=== PATIENT | female | born 1950 | race Caucasian/White ===

== ENCOUNTER → 2017-09-16 11:44 | Outpatient (CLI) | payer OTHER, SELFPAY ==
--- NOTE | 2017-09-16 11:47 | HPBI_ITS ---
MAMMOGRAPHY - BILATERAL SCREENING REASON FOR EXAM: Female, 66 years old. Routine annual screening examination. PERTINENT HISTORY: Non-contributory. TECHNIQUE: Digital bilateral breast erinn (3D mammographic acquisition) in the CC and MLO projections. 2-D mediolateral oblique (MLO) and craniocaudad (CC) views of both breasts were obtained. CAD: Full Field Digital Mammography with Computer Added Detection was performed. COMPARISON: Comparison is made with prior study dated September 14, 2016. FINDINGS: Breast Composition: The breasts are heterogeneously dense, which may obscure small masses. There are no dominant masses or suspicious calcifications. No other significant abnormalities are identified. There has been no significant change since the prior study. HPBI/SCREENING MAMM (CAD), BILAT IMPRESSION: Stable bilateral screening mammogram. Yearly follow-up mammogram recommended. (A) ASSESSMENT CATEGORY: BIRADS Category 1: Negative. A letter regarding these results will be sent to the patient by the facility within 30 days. Approximately 10% of breast cancers are not detected by mammography. A normal mammogram should not delay biopsy of a clinically suspicious abnormality. [id number] Electronically Signed: Chet Lopez MD at 13:05 EDT Tel [phone], Service support ,
== END ==
PROVIDERS: Visit Provider Nurse Practitioner Family
DX: Z12.31 Encounter for screening mammogram for malignant neoplasm of breast (principal)
CPT/HCPCS: 77063; 77067

== ENCOUNTER → 2019-02-21 | Outpatient (CLI) | payer MEDICARE, SELFPAY ==
--- NOTE | 2019-02-21 07:50 | BI_ITS ---
MAMMOGRAPHY - BILATERAL SCREENING 3-D TOMOSYNTHESIS REASON FOR EXAM: Female, 68 years old. Bilateral Screening 3-D tomosynthesis PERTINENT HISTORY: No significant family history. TECHNIQUE: 2-D mammograms and 3-D Tomosynthesis of the breast (s) were performed. CAD was performed. COMPARISON: 09/16/2017, 09/14/2016. FINDINGS: The breast composition is composed of scattered fibroglandular density. Scattered benign calcifications are seen. No dense spiculated masses or suspicious microcalcifications are identified. No architectural distortion is identified. There is no skin thickening or retraction. There has been no significant change since the prior study. BI/SCREEN MAMM (CAD) W/RITCHIE BILAT IMPRESSION: No mammographic signs of malignancy. Routine yearly mammograms recommended. ASSESSMENT CATEGORY: BIRADS Category 2: Benign. A letter regarding these results will be sent to the patient by the facility within 30 days. FOLLOW UP RECOMMENDATION: Yearly follow up mammogram recommended. (A) Approximately 10% of breast cancers are not detected by mammography. A normal mammogram should not delay biopsy of a clinically suspicious abnormality. Electronically Signed: Tk Desouza MD at 16:17 EDT Tel [phone], Service support ,
== END | disposition home or self-care (01) ==
LOC: OPBI 07:44
DX: Z12.31 Encounter for screening mammogram for malignant neoplasm of breast (principal)
CPT/HCPCS: 77063; 77067

== ENCOUNTER → 2020-05-23 14:47 | Outpatient (CLI) | payer MEDICARE, SELFPAY ==
--- NOTE | 2020-05-23 14:50 | BI_ITS ---
MAMMOGRAPHY - BILATERAL SCREENING REASON FOR EXAM: Female, 69 years old. Routine annual screening examination. PERTINENT HISTORY: Non-contributory. TECHNIQUE: Digital bilateral breast ritchie (3D mammographic acquisition) in the CC and MLO projections. 2-D mediolateral oblique (MLO) and craniocaudad (CC) views of both breasts were obtained. CAD: Full Field Digital Mammography with Computer Added Detection was performed. COMPARISON: Comparison is made with prior study dated 02/21/2019 and 09/16/2017. FINDINGS: Breast Composition: There are scattered areas of fibroglandular density. There are no dominant masses or suspicious calcifications. Benign appearing bilateral axillary lymph nodes. No other significant abnormalities are identified. There has been no significant change since the prior study. BI/SCREEN MAMM (CAD) W/RITCHIE BILAT IMPRESSION: Stable bilateral screening mammogram. Yearly follow-up mammogram recommended. (A) ASSESSMENT CATEGORY: BIRADS Category 1: Negative. A letter regarding these results will be sent to the patient by the facility within 30 days. Approximately 10% of breast cancers are not detected by mammography. A normal mammogram should not delay biopsy of a clinically suspicious abnormality. [id number] Electronically Signed: Chet Lopez, at 15:38 EST , Service support ,
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
== END ==
DX: Z12.31 Encounter for screening mammogram for malignant neoplasm of breast (principal); Z13.820 Encounter for screening for osteoporosis; Z78.0 Asymptomatic menopausal state; M81.0 Age-related osteoporosis without current pathological fracture; Z87.891 Personal history of nicotine dependence
CPT/HCPCS: 77063; 77067; 77080

== ENCOUNTER 2020-06-12 06:50 | Day surgery (SDC) | payer MEDICARE, SELFPAY ==
[2020-06-12 07:09] VITALS: BP 129/91; PULSE 80; RESP 16; TEMP 36; O2SAT 95; BMI 28.6
[2020-06-12] MEDS: Lactated Ringers 1,000 ML 100 ML IV (07:27)
--- NOTE | 2020-06-12 07:49 | HP.PCM_ITS ---
History of Present Illness Date of Admission: 06/12/20 The patient is a 69 year old F presents for colonoscopy due to history of colon polyps. Patient's last colonoscopy was 5 years ago there was 2 polyps at that time. Patient states normally bowel movements daily denies any blood. Patient denies any family history of colon cancer. Patient denies any chronic abdominal pain nausea or vomiting. Past Medical/Surgical History - Planned Operation Planned Operative Procedure/s: cscope open access Date of Operative Procedure: 06/12/20 Permit Signed: No S.O.S: No Is This Patient Having a Total Joint: No - Previous Hospitalizations/Surgeries HX Hospitalizations: No HX of Surgeries: cscope. uterine ablation. bladder lift Any Problems With Anesthesia: No You/Your Family Experience Fever (Hyperthermia) With Anes: No Cholinesterase deficiency: No - Cardiovascular Hx Chest Pain within Last 2 months: No Hx of Irregular Heartbeat and/or Afib: No Hx Heart Attack: No Hx Congestive Heart Failure: No Hx Rheumatic Fever: No Hx Hypertension: Yes - controlled with med Hx Internal Defibrillator: No Hx Pacemaker: No Hx Cardiac Catheterization: No Hx Cardiac Surgery/Stents/Etc.: No Hx Stress Test: No HX Edema: No Hx Pain in Legs when Walking/Leg Cramps: No - Respiratory Chronic Cough: No HX of Shortness of Breath: No Hoarseness: No Hx Chronic Obstructive Pulmonary Disease (COPD): No Hx Asthma: No Hx Emphysema: No Hx Sleep Apnea: No Hx Oxygen Use at Home: No Hx Respiratory Tract Infection/Cold (presently): No Do You Snore Loudly (louder than talking or can be heard): No Do You Often Feel Tired/ Fatigued/ Sleepy Dring Daytime?: No Has Anyone Observed You Stop Breathing During Sleep?: No Result (for STOP score): Negative Hx Smoking: Yes - quit 2 yrs ago Smoking Status: Former smoker - Gastrointestinal Hx Gastroesophageal Reflux: No - occ heartburn Hx Gastrointestinal Disorders: No Hx Gastrointestinal Bleed: No Hx Ulcer: No Hx Hiatal Hernia: No Difficulty Chewing/Swallowing: No Recent Onset of Swallowing Problems: No Special diet followed at home: No Hx Unplanned Weight Loss of 20#: No HX Unplanned Weight Gain of 20#: No - Neurological Hx Seizures: No HX Syncope/Blackout Spells/Unconsciousness: No Hx CVA/Stroke: No Hx Transient Ischemic Attacks (TIA): No Hx Multiple Sclerosis: No Hx Parkinson's Disease: No Hx Head/Neck Injury: No Hx Headaches: No Hx Back Injury/Pain: Yes - lower back pain prn Recent Onset of Speech Difficulty: No Restless Legs: Yes - occ Does patient have nerve stimulator: No Patient instructed to have device shut off: No Rep notified?: No - Blood Disorder Hx Leukemia: No Bleeding Tendencies: No Hx Deep Vein Thrombosis: No Hx High Cholesterol: Yes - on med Blood Transmitted Disease: No Hx Hepatitis: No Hx Cirrhosis: No Hx Anemia: No Hx Blood Disorders: No - Reproduction : No Is Patient Lactating: No Hx Hysterectomy: No Hx Tubal Ligation: No Are You Post Menopause: Yes - Genitourinary Hx Renal Disease: No - incontinence - Musculoskeletal Hx Arthritis: Yes Hx Rheumatoid Arthritis: No Hx Gout: No Recent Onset of an Orthopedic Problem: No - Endocrine Hx Diabetes: No Thyroid Disease: No Hx Steroid Therapy: No - Psycho/Social Hx Substance Use: No Hx Alcohol Use: No Hx Anxiety: No Hx Depression: No Mental Illness: No Hx Dementia: No - Miscellaneous Hx Cancer: No Recent Exposure to Contagious Disease: No Active MRSA: No Hx of C-Diff: No Any Loose Teeth: No - dentures Allergies celecoxib [From Celebrex] Allergy (Intermediate, Verified 06/12/20 07:07) Rash - Discharge Is Pt Admitted From a Penitentiary, or a Longterm: No After D/C, Where Do you Plan to Go: Return Home - From the PAT History Number of Risk Factors: 1 - Physical Exam Vitals/I&O's: Vital Signs Temp Pulse Resp BP Pulse Ox 96.8 F L 80 16 129/91 H 95 06/12/20 07:09 06/12/20 07:09 06/12/20 07:09 06/12/20 07:09 06/12/20 07:09 Oxygen Delivery Method Room Air Weight: 154 lb 1.65 oz Body Mass Index (BMI) 28.6 General: Alert, Oriented x3, Cooperative, No apparent distress HEENT: Atraumatic Lungs: Normal air movement Cardiovascular: Regular rate Abdomen: Soft, Non Tender, Non-Distended Extremities: No clubbing, No cyanosis, No edema Neurological: Cranial nerves II-XII grossly intact Psych/Mental Status: Normal Affect Microbiology Past 72 Hours 06/11/20 10:00 Interface Orders SARS-CoV-2 Antigen (Rapid) - Final Current Medications Lactated Ringer's () 1,000 mls @ 100 mls/hr IV .Q10H MIKO Last Admin: 06/12/20 07:27 Dose: 100 mls/hr Documented by: Assessment/Plan All Active Problems (Last Updated 09/19/19 @ 10:21 by Ronel Hall) Chest pain (Acute) 69-year-old female history of colon polyps Procedure Criteria Procedure Type: Elective COVID Risk Discussion: The surgeon/proceduralist and patient have discussed in detail the risk of exposure to and/or potential harm posed by the COVID-19 virus with having a surgery/procedure at this time versus the risk of delaying the surgery/procedure. It is not possible to know either the risk of delaying the surgery or procedure or chance of getting an infection with perfect accuracy, but a joint decision was made between the patient and the surgeon/proceduralist to proceed at this time with the scheduled surgery/procedure as indicated on the consent form. Surgery Risks - Colonoscopy I discussed with the patient the risks of the procedure: Yes Risks Include but are not Limited To: Risks include but are not limited to: Bleeding, perforation requiring further surgery, inability to complete colonoscopy requiring barium enema.
--- NOTE | 2020-06-12 08:00 | COLBX_PTH ---
PATIENT: BERNICE WEST LOC: EN U#:[id number] AGE/SX: 69/F ROOM: RE06/12/[address]: Dr. Maura Mojica MD : 1950 BED: DIS: 06/12/2020 SPEC #: [id number] RECD: 06/12/20 08:00 STATUS: RAMO LULY #: [id number] YOLANDA: 06/12/20 08:[address]: Maura Mojica DEPT: SURGICAL PATHOLOGY RECD BY: Lillian Colby ENTERED: 06/12/20 10:57 SP TYPE: COLON BX OTHR DR: B[facility] Tissues: Rectum, NOS Procedures: Surgery Specimen Level IV HEADER OPERATION: Colonoscopy - open access (MAC) PRE-OP DIAGNOSIS: Colon polyps TISSUE SUBMITTED: Rectal polyps (biopsy and snare) MICROSCOPIC DIAGNOSIS Rectal polyps, biopsy: Tubular adenoma. Fragments of hyperplastic polyp. SJ:sammie 12/10/20 MICROSCOPIC DESCRIPTION Slides are reviewed. GROSS DESCRIPTION Received in fixative is one container labeled with the patient's name and designated rectal polyps. The specimen consists of multiple irregular fragments of light hedrick soft tissue that in aggregate measure 1 x 0.6 x 0.1 cm. The specimen is totally submitted in one cassette. / AM:sammie 06/12/20 TC:1 CPT: 68937
[2020-06-12 08:26] VITALS: BP 107/73; BP 129/91; PULSE 74; RESP 18; TEMP 36.1; O2SAT 99
[2020-06-12 08:31] VITALS: BP 110/71; BP 129/91; PULSE 75; RESP 17; O2SAT 97
[2020-06-12 08:36] VITALS: BP 109/66; BP 129/91; PULSE 73; RESP 18; O2SAT 97
--- NOTE | 2020-06-12 08:39 | OP.COLON_ITS ---
Patient Name: Lolita Martinez Procedure Date: 06/12/2020 7:12 AM Date of : 1950 Age: 69 Procedure: Colonoscopy Indications: High risk colon cancer surveillance: Personal history of colonic polyps Providers: Maura Mojica MD Referring MD: Maura Mojica MD Medicines: Monitored Anesthesia Care Patient Profile: This is a 69 year old female. Last Colonoscopy: 5 years ago. Complications: No immediate complications. Procedure: Pre-Anesthesia Assessment: - Prior to the procedure, a History and Physical was performed, and patient medications and allergies were reviewed. The patient's tolerance of previous anesthesia was also reviewed. The risks and benefits of the procedure and the sedation options and risks were discussed with the patient. All questions were answered, and informed consent was obtained. Prior Anticoagulants: The patient has taken no previous anticoagulant or antiplatelet agents. ASA Grade Assessment: Per anesthesia. After reviewing the risks and benefits, the patient was deemed in satisfactory condition to undergo the procedure. After I obtained informed consent, the scope was passed under direct vision. Throughout the procedure, the patient's blood pressure, pulse, and oxygen saturations were monitored continuously. The colonoscope was introduced through the anus and advanced to the cecum, identified by the appendiceal orifice, ileocecal valve and palpation. The colonoscopy was performed without difficulty. The patient tolerated the procedure well. The quality of the bowel preparation was good. Scope In: 7:58:43 AM Scope Withdrawal Time 0 hours 13 minutes 33 seconds Scope Out: 8:20:34 AM Total Procedure Duration Time 0 hours 21 minutes 51 seconds Findings: Hemorrhoids were found on perianal exam. Internal hemorrhoids were found during retroflexion. The hemorrhoids were small. A less than 5 mm polyp was found in the rectum. The polyp was removed with a cold snare. Resection and retrieval were complete. Biopsies were taken with a cold forceps for histology. A less than 5 mm polyp was found in the rectum. The polyp was sessile. The polyp was removed with a cold biopsy forceps. Resection and retrieval were complete. Impression: - Hemorrhoids found on perianal exam. - Internal hemorrhoids. - One less than 5 mm polyp in the rectum, removed with a cold snare. Resected and retrieved. Biopsied. - One less than 5 mm polyp in the rectum, removed with a cold biopsy forceps. Resected and retrieved. Recommendation: - Repeat colonoscopy is recommended for surveillance. The colonoscopy date will be determined after pathology results from today's exam become available for review. - Continue present medications. Procedure Code(s): --- Professional --- 91945, PT, Colonoscopy, flexible; with removal of tumor(s), polyp(s), or other lesion(s) by snare technique 37752, 59, Colonoscopy, flexible; with biopsy, single or multiple Diagnosis Code(s): --- Professional --- Z86.010, Personal history of colonic polyps K64.8, Other hemorrhoids K62.1, Rectal polyp CPT copyright 2017 [employer]. All rights reserved. The codes documented in this report are preliminary and upon patient registration clerk review may be revised to meet current compliance requirements. MD Maura Luis MD 06/12/2020 8:39:39 AM This report has been signed electronically. Number of Addenda: 0 Note Initiated On: 06/12/2020 7:12 AM
--- NOTE | 2020-06-12 08:40 | OP.CCLET_ITS ---
06/12/2020 [place] [facility] Re : Colonoscopy procedure for Lolita [facility] This procedure was performed on Friday, June 12, 2020. My impressions and recommendations are as follows: Impressions : - Hemorrhoids found on perianal exam. - Internal hemorrhoids. - One less than 5 mm polyp in the rectum, removed with a cold snare. Resected and retrieved. Biopsied. - One less than 5 mm polyp in the rectum, removed with a cold biopsy forceps. Resected and retrieved. Recommendations : - Repeat colonoscopy is recommended for surveillance. The colonoscopy date will be determined after pathology results from today's exam become available for review. - Continue present medications. My findings are described in the full procedure note, which is enclosed. If I can be of further assistance, please feel free to contact me at Doctor phone number(s): , Work: . Sincerely, MD Maura Luis MD 06/12/2020 8:39:39 AM This report has been signed electronically.
[2020-06-12 08:41] VITALS: BP 107/74; BP 129/91; PULSE 79; RESP 17; TEMP 36.3; O2SAT 98
[2020-06-12 09:31] VITALS: BP 129/91
== END 2020-06-12 09:36 | disposition home or self-care (01) ==
LOC: EN 06:51 → AC 06:51
PROVIDERS: Referring Provider Surgery; Visit Provider Surgery
PROC: 0DJD8ZZ Inspection of Lower Intestinal Tract, Via Natural or Artificial Opening Endoscopic (ICD-10-PCS; CPT 45378; principal; 2020-06-12 07:55)
DX: D12.8 Benign neoplasm of rectum (principal); K64.8 Other hemorrhoids; Z87.19 Personal history of other diseases of the digestive system; I10 Essential (primary) hypertension; E78.00 Pure hypercholesterolemia, unspecified; Z79.899 Other long term (current) drug therapy; Z20.828 Contact with and (suspected) exposure to other viral communicable diseases; Z87.891 Personal history of nicotine dependence
CPT/HCPCS: 45380; 87426; 88305; C9803; J7120; J2405

== ENCOUNTER → 2020-07-23 09:58 | Outpatient (CLI) | payer MEDICARE, SELFPAY ==
[2020-07-23 11:52] LABS: Vitamin D,25 Hydroxy 43.3 ng/mL
[2020-07-23 11:55] LABS: Cholesterol 196 mg/dL (200); High Density Lipoprotein 52 mg/dL; Triglycerides 252 mg/dL; Very Low Density Lipoprotein 50 mg/dL (5-40)
== END ==
DX: E55.9 Vitamin D deficiency, unspecified (principal); I10 Essential (primary) hypertension; E78.5 Hyperlipidemia, unspecified
CPT/HCPCS: 36415; 80061; 82306

== ENCOUNTER → 2020-08-07 10:13 | Outpatient (CLI) | payer MEDICARE, SELFPAY ==
[2020-08-07 12:04] LABS: T4 Free Direct 1.02 ng/dL (0.76-1.46); Thyroid Stim Hormone (TSH) 1.84 uIU/mL (0.358-3.74)
[2020-08-08 14:10] LABS: Thyroid Peroxidase AB < 9 IU/mL (0-34)
[2020-08-08 20:51] LABS: H. Pylori Antibody (IgG) 0.28 (0.00-0.79); Thyroglobulin Antibody < 1.0 IU/mL (0.0-0.9)
== END ==
PROVIDERS: Referring Provider Nurse Practitioner Adult Health; Visit Provider Nurse Practitioner Adult Health
DX: R63.5 Abnormal weight gain (principal)
CPT/HCPCS: 36415; 84439; 84443; 86376; 86677; 86800

== ENCOUNTER → 2020-10-09 07:55 | Outpatient (CLI) | payer MEDICARE, SELFPAY ==
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
== END ==
DX: R12 Heartburn (principal)
CPT/HCPCS: 76700

== ENCOUNTER → 2020-10-22 10:13 | Outpatient (CLI) | payer MEDICARE, SELFPAY ==
--- NOTE | 2020-10-22 10:20 | NM_ITS ---
CLINICAL: 69-year-old female with reported history of postprandial abdominal pain. RADIONUCLIDE HEPATOBILIARY SCINTIGRAPHY COMPARISON: Abdominal ultrasound report 10/09/2020 FINDINGS: Following the intravenous administration of 5.2 mCi of 99m Tc Mebrofenin, hepatobiliary images reveal: 1. Relatively prompt and homogeneous radiopharmaceutical concentration is noted by a normal sized liver. No parenchymal defects are identified. 2. Gallbladder activity is identified at 15 minutes post radiopharmaceutical administration. 3. Small intestinal tract is observed at 30 minutes following tracer injection. 4. Washout of the radiopharmaceutical by the hepatic parenchyma appears qualitatively normal. The patient was administered a fatty meal (8 ounces Half and Half). The post fatty meal consumption gallbladder ejection fraction calculated at 60 minutes was noted to be < 5% (normal greater than 30%). NM/Hepatobilliary Imaging IMPRESSION: 1. ABNORMAL 99m Tc Mebrofenin hepatobiliary imaging examination with fatty meal ingestion. A. A gallbladder ejection fraction calculated to be < 30% following the administration of a consumed fatty meal is consistent with the presence of functional hepatobiliary disease (gallbladder and/or sphincter of Oddi dyskinesia) and/or organic hepatobiliary disease (chronic acalculous cholecystitis and/or cystic duct syndrome) in patients with intermediate to high pretest probabilities of hepatobiliary illness. (Nazario and Adonay, J Nucl Med 43: 1603, 2002). Electronically Signed: Fahad Boyer DO at 22:32 EDT Tel , Service support ,
== END ==
DX: K82.9 Disease of gallbladder, unspecified (principal)
CPT/HCPCS: 78226; A9537

== ENCOUNTER → 2021-02-13 10:31 | Outpatient (CLI) | payer MEDICARE, SELFPAY ==
[2020-11-29 13:21] VITALS: BMI 28.6
[2021-02-14 16:09] LABS: Endomysial Antibody IgA Negative (Negative)
[2021-02-14 17:27] LABS: Deamidated Gliadin IgA 4 units (0-19); Deamidated Gliadin IgG 2 units (0-19); Immunoglobulin A 101 mg/dL (87-352); t-Transglutaminase IgA <2 U/mL (0-3)
== END ==
PROVIDERS: Visit Provider Nurse Practitioner Adult Health
DX: R19.7 Diarrhea, unspecified (principal)
CPT/HCPCS: 36415; 82784; 83516; 86255

== ENCOUNTER 2021-07-30 10:34 | Outpatient (CLI) | payer MEDICARE, SELFPAY ==
[2021-07-30 10:54] LABS: Absolute Neutrophil Count 3.6 X10^3/uL (2.0-7.7); Basophil# 0.05 X10^3/uL; Basophil% 0.8 % (0-1); Eosinophils% 1.7 % (0-5); Hemoglobin 14.5 g/dL (12.0-15.0); Lymphocyte % 28.9 % (19-41); Mean Corpuscular Hgb 28.4 pg (27.0-32.0); Mean Corpuscular Volume 86.1 fL (81-99); Mean Platelet Vol. 10.5 fl (6.2-12.0); Monocyte# 0.44 X10^3/uL; Monocyte% 7.5 % (0-10); NRBC Flagged by Analyzer 0 % (0-5); Neutrophil # 3.57 X10^3/uL (2.7-7.7); Neutrophil % 60.6 % (47-70); Platelet Count 247 K/mm3 (150-450); RBC Distribution Width CV 13.2 % (11.6-14.6); RBC Distribution Width SD 41.1 fl (35.1-43.9); Red Blood Count 5.11 M/mm3 (4.2-5.4); White Blood Count 5.9 K/mm3 (4.4-11.0)
[2021-07-30 11:34] LABS: ALB/GLOB Ratio 0.9 RATIO (0.9-2.4); AST(SGOT) 20 U/L (15-37); Alanine Aminotransfer ALT/SGPT 29 U/L (13-56); Albumin, Serum 3.7 g/dL (3.2-5.0); Alkaline Phosphatase 87 U/L (45-117); Anion Gap 4 (5-15); BUN 15 mg/dL (7-18); BUN/Creat Ratio 17.5 RATIO (10-20); Calcium,Total 9.5 mg/dL (8.5-10.1); Chloride 109 mmol/L (98-107); Cholesterol 202 mg/dL (200); Creatinine, Serum 0.86 mg/dL (0.55-1.02); EST Glomerular Filtration Rate 70 mL/min (>60); Est Glom Filt Rate - Afr Amer 85 mL/min (>60); Glucose 94 mg/dL (74-106); High Density Lipoprotein 49 mg/dL; Potassium 4.4 mmol/L (3.5-5.1); Protein, Total 7.7 g/dL (6.4-8.2); Sodium Level 139 mmol/L (136-145); Thyroid Stim Hormone (TSH) 1.61 uIU/mL (0.358-3.74); Triglycerides 223 mg/dL; Very Low Density Lipoprotein 45 mg/dL (5-40)
[2021-07-30 11:40] LABS: Hemoglobin A1c 5.4 % (3.8-5.6)
== END 2021-07-30 23:59 | disposition short-term general hospital (02) ==
LOC: LAB 10:36
PROVIDERS: Visit Provider Nurse Practitioner Adult Health
DX: I10 Essential (primary) hypertension (principal); Z83.3 Family history of diabetes mellitus
CPT/HCPCS: 36415; 80053; 80061; 83036; 84443; 85025

== ENCOUNTER 2021-08-19 12:29 | Outpatient (CLI) | payer MEDICARE, SELFPAY ==
--- NOTE | 2021-08-19 12:31 | BI_ITS ---
MAMMOGRAPHY - BILATERAL SCREENING REASON FOR EXAM: Female, 70 years old. Routine annual screening examination. PERTINENT HISTORY: Non-contributory. TECHNIQUE: Digital bilateral breast ritchie (3D mammographic acquisition) in the CC and MLO projections. 2-D mediolateral oblique (MLO) and craniocaudad (CC) views of both breasts were obtained. CAD: Full Field Digital Mammography with Computer Added Detection was performed. COMPARISON: Comparison is made with prior study dated 05/23/2020 and 02/21/2019. FINDINGS: Breast Composition: There are scattered areas of fibroglandular density. There are no dominant masses or suspicious calcifications. Stable small benign-appearing right axillary lymph nodes. No other significant abnormalities are identified. There has been no significant change since the prior study. BI/SCRN MAMM (CAD)W/RITCHIE BILAT IMPRESSION: Stable bilateral screening mammogram. Yearly follow-up mammogram recommended. (A) ASSESSMENT CATEGORY: BIRADS Category 2: Benign. A letter regarding these results will be sent to the patient by the facility within 30 days. Approximately 10% of breast cancers are not detected by mammography. A normal mammogram should not delay biopsy of a clinically suspicious abnormality. [id number] Electronically Signed: Chet Lopez MD at 13:33 EST ,
== END 2021-08-19 23:59 | disposition home or self-care (01) ==
LOC: OPBI 12:29
PROVIDERS: Referring Provider Nurse Practitioner Adult Health; Visit Provider Nurse Practitioner Adult Health
DX: Z12.31 Encounter for screening mammogram for malignant neoplasm of breast (principal)
CPT/HCPCS: 77063; 77067

== ENCOUNTER → 2021-10-29 | Outpatient (CLI) | payer MEDICARE, SELFPAY | END | disposition home or self-care (01) | LOC: LABSPEC 13:48 | PROVIDERS: Visit Provider Nurse Practitioner Women's Health | DX: R10.31 Right lower quadrant pain (principal); R10.32 Left lower quadrant pain | CPT/HCPCS: 87086; 87088 ==

== ENCOUNTER → 2021-11-03 | Outpatient (CLI) | payer MEDICARE, SELFPAY ==
[2021-11-03 12:04] LABS: AST(SGOT) 22 U/L (15-37); Alanine Aminotransfer ALT/SGPT 32 U/L (13-56); Cholesterol 200 mg/dL (200); High Density Lipoprotein 51 mg/dL; Triglycerides 205 mg/dL; Very Low Density Lipoprotein 41 mg/dL (5-40)
== END | disposition home or self-care (01) ==
LOC: LAB 10:19
PROVIDERS: Visit Provider Nurse Practitioner Adult Health
DX: E78.5 Hyperlipidemia, unspecified (principal)
CPT/HCPCS: 36415; 80061; 84450; 84460

== ENCOUNTER 2022-01-22 11:50 | Outpatient (CLI) | payer MEDICARE, SELFPAY ==
[2022-01-22 12:59] LABS: NATERA MAILED SPECIMEN
== END 2022-01-22 23:59 | disposition home or self-care (01) ==
LOC: LAB 11:52
PROVIDERS: Referring Provider Obstetrics & Gynecology; Visit Provider Obstetrics & Gynecology
DX: Z15.01 Genetic susceptibility to malignant neoplasm of breast (principal); Z80.3 Family history of malignant neoplasm of breast
CPT/HCPCS: 36415

== ENCOUNTER → 2022-02-10 | Outpatient (CLI) | payer MEDICARE, SELFPAY ==
--- NOTE | 2022-02-10 13:08 | US_ITS ---
STUDY: ULTRASOUND OF THE FEMALE PELVIS - COMPLETE REASON FOR EXAM: Female, 71 years old. Cystocele with UT PROLAPSE -- PATIENT HAS A PESSARY LMP: Patient is postmenopausal. TECHNIQUE: Transabdominal TECHNICAL QUALITY: Adequate. COMPARISON: None. FINDINGS: The uterus is anteverted and is in a midline position. The uterus measures 5.2 cm x 3.5 cm x 1.7 cm. Normal uterine cervix. The endometrium measures 2 mm in thickness, and is hyperechoic. There is no demonstrated endometrial mass. There is no demonstrated myometrial mass. I.U.D. - The patient does not have an I.U.D. The right ovary is visualized. The right ovary measures 2.1 cm x 2.2 cm x 0.8 cm. There is no right ovarian cyst or ovarian mass. There is no visualized right adnexal mass or complex lesion. There is normal arterial and normal venous vascularity. The left ovary is non-visualized. There is no fluid in the cul-de-sac. The pre void volume of the bladder was 580 ml. US/Pelvic (Non ) IMPRESSION: Normal postmenopausal female pelvis. Electronically Signed: Chet Lopez MD at 15:12 EDT ,
== END | disposition home or self-care (01) ==
LOC: OPUS 12:46
PROVIDERS: Visit Provider Obstetrics & Gynecology
DX: N81.3 Complete uterovaginal prolapse (principal); Z78.0 Asymptomatic menopausal state
CPT/HCPCS: 76856

== ENCOUNTER 2022-08-07 11:25 | Observation (INO) | payer MEDICARE, SELFPAY ==
--- NOTE | 2022-08-06 10:20 | EKG12_ITS ---
Test Reason : PRE OP Blood Pressure : / mmHG Vent. Rate : 068 BPM Atrial Rate : 068 BPM P-R Int : 102 ms QRS Dur : 086 ms QT Int : 382 ms P-R-T Axes : 042 029 012 degrees QTc Int : 406 ms Sinus rhythm with short [place] Nonspecific ST abnormality Abnormal ECG Confirmed by CHERRI SINCLAIR, MENA ([id number]), managing editor JONN MOTLEY ([id number]) on 08/06/2022 10:24:15 AM Referred By: Mercedes Nguyễn Confirmed By:MENA HARLEY MD
[2022-08-06 11:03] LABS: Absolute Lymphocyte Count 1.73 X10^3/uL (0.83-4.51); Absolute Neutrophil Count 4.6 X10^3/uL (2.0-7.7); Basophil# 0.05 X10^3/uL; Basophil% 0.7 % (0-1); Eosinophil# 0.09 X10^3/uL; Eosinophils% 1.3 % (0-5); Hematocrit 43.5 % (37-47); Hemoglobin 13.9 g/dL (12.0-15.0); Lymphocyte # 1.73 X10^3/ul (0.83-4.51); Mean Corpuscular Hgb 27.7 pg (27.0-32.0); Mean Corpuscular Volume 86.7 fL (81-99); Mean Platelet Vol. 10.8 fl (6.2-12.0); Monocyte# 0.48 X10^3/uL; Monocyte% 6.9 % (0-10); NRBC Flagged by Analyzer 0 % (0-5); Neutrophil # 4.55 X10^3/uL (2.7-7.7); Platelet Count 272 K/mm3 (150-450); RBC Distribution Width CV 13.3 % (11.6-14.6); RBC Distribution Width SD 41.7 fl (35.1-43.9); Red Blood Count 5.02 M/mm3 (4.2-5.4); White Blood Count 6.9 K/mm3 (4.4-11.0)
[2022-08-06 11:28] LABS: Anion Gap 7 (5-15); BUN 13 mg/dL (7-18); BUN/Creat Ratio 13.1 RATIO (10-20); Calcium,Total 9.4 mg/dL (8.5-10.1); Chloride 111 mmol/L (98-107); EST Glomerular Filtration Rate 59 mL/min (>60); Est Glom Filt Rate - Afr Amer 71 mL/min (>60); Estimated Creatinine Clearance 40.07 ml/min; Glucose 95 mg/dL (74-106); Sodium Level 144 mmol/L (136-145)
[2022-08-06 11:29] LABS: Magnesium 2.3 mg/dL (1.6-2.6)
--- NOTE | 2022-08-06 19:39 | PCM.HP.BLA ---
History and Physical Intake Visit Reasons:?vicky DAVILA Chief Complaint: pre op ERAS with vicky [facility] [employer] [facility] Required: No Is patient in pain?: No Allergies celecoxib [From Celebrex] Allergy (Intermediate, Verified 06/03/22 11:07) Rash Medications cholecalciferol (vitamin D3) 125 mcg (5,000 unit) tablet 125 mcg PO DAILY 09/19/19 [History Confirmed 07/27/22] lisinopril 10 mg tablet 10 mg PO QHS 09/19/19 [History Confirmed 07/27/22] oxybutynin chloride 10 mg tablet,extended release 24 hr 10 mg PO DAILY 09/19/19 [History Confirmed 07/27/22] simvastatin 10 mg tablet 20 mg PO QHS 10/22/21 [History Confirmed 07/27/22] dicyclomine 10 mg capsule 10 mg PO BID 01/22/22 [History Confirmed 07/27/22] pantoprazole 40 mg tablet,delayed release (Protonix) 40 mg PO DAILY 01/22/22 [History Confirmed 07/27/22] Is last menstrual period known: No Post menopausal: Yes Patient : No : No [facility] Medical History? Essential hypertension GERD (gastroesophageal reflux disease) Hyperlipidemia Osteoarthritis Vitamin D deficiency Surgical History? History of bladder suspension procedure History of colonoscopy (~05/2020) History of endometrial ablation History of tonsillectomy Family History? Father Heart diseaseSister Cancer ?? ? liverSister Cancer ?? ? ovarianGrandmother Diabetes Social History? household members:? none and other current occupational status:? retired Smoking Status:? Former smoker alcohol intake:? never substance use type:? does not use caffeine:? Yes Type: coffee Number of servings: 5 what type of physical activity do you participate in:? walking frequency:? 1-2 times per week seatbelt use:? always do you feel safe at home:? Yes additional social history:? HPI vicky DAVILA Details: BERNICE WEST is a 71 year old who presents for preop visit cystocele and uterine prolapse.? Female Reproductive History Menopausal Symptoms: No night sweats History ? ? ? 3 ? Elective abortions ? Hx Para ? ? ? 3 ? Spontaneous abortions ? Hx # Term Pregnancies ? Ectopic pregnancies ? Hx # Pregnancies ? Multiple births ? # of living children ? ? ? 3 Past Pregnancies Del. Date Name GA/Weeks Outcome Route Bth Weight Infant Gen Labor Lgth Anesthesia Del Locatn Provider FOB Unknown Walter ? 1970 ? Unknown Lita ? 1973 ? Unknown Brittany ? 1979 ? ROS Const Constitutional: Reports system reviewed and no additional complaints, except as documented; Denies night sweats Eyes Eyes: Reports system reviewed and no additional complaints, except as documented ENT ENT: Reports system reviewed and no additional complaints, except as documented Cardio Card: Denies chest pain Resp Resp: Denies cough or dyspnea GI GI: Denies abdominal pain or change in bowel habits : Reports as per HPI; Denies nipple discharge Musc Musc: Denies arthralgias, back pain or muscle weakness Skin Skin/Breast: Denies alopecia, change in hair, dry skin, breast mass, breast pain, breast skin changes or nipple discharge Neuro Neuro: Reports system reviewed and no additional complaints, except as documented Psych Psych: Reports system reviewed and no additional complaints, except as documented Endo Endo: Denies cold intolerance, excessive sweating, heat intolerance or polydipsia Zack/Lymph Hematologic/Lymphatic: Denies easy bleeding, Denies easy bruising and Denies lymphadenopathy Exam Const General: cooperative and no acute distress Nutritional Appearance: well nourished Orientation: oriented x3 HENMT Head: normal to inspection and normocephalic Ears: hearing grossly normal bilaterally and external ears normal Nose: external nose normal and nares normal Face and sinus: normal facial exam Neck Neck: normal visual inspection and no lymphadenopathy Thyroid: thyroid normal Chest Chest palpation & inspection: normal inspection of the chest Resp Effort & Inspection: normal respiratory effort Auscultation: clear to auscultation bilaterally Cardio Rate: regular rate Rhythm: regular rhythm Heart Sounds: S1 normal and S2 normal GI Inspection: normal to inspection and non-distended Palpation: soft and no hepatosplenomegaly General: bladder normal to palpation External Female Exam: normal appearance of the urethra and other (atrophic changes) Urethra: normal appearance of the urethra Speculum Exam - Vagina: vagina atrophic (cervix is prolapses just through introitus. States feels dry and irritated) Speculum Exam - Cervix: normal appearance of the cervix Bimanual Exam- Vagina & Uterus: uterine size normal, bladder normal to palpation and non-tender Bimanual Exam- Adnexa, other: normal adnexae, no masses, non-tender, cystocele and vaginal apex descent Pelvic Support: cystocele and vaginal apex descent Musc Other: gross motor intact no deficits, full bilateral strength Skin General: no rashes or lesions noted Neuro General: patient alert, patient awake, moves all extremities and no focal motor deficits Motor: muscle tone normal throughout Extrem General: normal to inspection and no pedal edema Psych Appearance: grossly normal Mental Status: mental status grossly normal Affect: normal affect Speech and Movement: speech and movement normal Coding Level of Care Code No Charge Diagnoses Cystocele with third degree uterine prolapse? N81.3 Family history of ovarian cancer? Z80.41 Atrophic vaginitis? N95.2 Assessment and Plan Assessment and Plan (1) Cystocele with third degree uterine prolapse: ?Status:?Acute ?Comment: #3 ring with support estradiol cream. Wants combination case July 2022 Morales Nguyễn/Vicky (2) Family history of ovarian cancer: ?Status:?Acute ?Comment: empower test negative, pelvic US nl (3) Atrophic vaginitis: ?Status:?Acute ?Comment: estradiol cream Plan After discussing the patient's diagnosis and treatment plan options, patient wishes to proceed with surgical management.? I have discussed with the patient the risks, benefits, and alternatives of the procedure which include but are not limited to risks of anesthesia, bleeding, infection, possible damage to bowel, bladder, or surrounding vasculature which could lead to additional surgery to evaluate any complications.? Patient agrees to procedure and wishes to proceed.? ACOG/uptodate references given for additional information regarding procedure.? UPDATE- I have seen the patient and performed any clinically relevant updates to the history and physical exam. Mercedes Nguyễn MD
[2022-08-07] VITALS (16 sets, daily range): BP systolic 96–159; BP diastolic 62–85; PULSE 62–88; RESP 16–83; TEMP 36.4–36.9; O2SAT 92–100; BMI 29.1; BMI 29.2
[2022-08-07] MEDS: dexAMETHasone 10 MG/ML Vial 8 MG IV (06:09)
[2022-08-07] MEDS: Lactated Ringers 1,000 ML 40 ML IV ×3 (06:10→13:08)
[2022-08-07] MEDS: Magnesium 1 GM over 15 mins IV (06:10)
[2022-08-07] MEDS: Acetaminophen 500 MG Tablet 1000 MG PO (06:29)
[2022-08-07] MEDS: Gabapentin 600 MG Tablet PO (06:29)
[2022-08-07] MEDS: Phenazopyridine 95 MG Tablet 190 MG PO (06:30)
[2022-08-07] MEDS: Enoxaparin 40 MG/0.4 ML Syringe SC (06:32)
[2022-08-07] MEDS: Scopolamine 1mg/72hr Patch 1 PATCH TD (06:32)
[2022-08-07 07:25] LABS: Bedside Glucose 100 mg/dL (74-106)
[2022-08-07] MEDS: Cefazolin 2 GM in 0.9% Normal Saline 100 ML IV (07:29)
--- NOTE | 2022-08-07 07:30 | HYST_PTH ---
PATIENT: BERNICE WEST LOC: MS3 U#:[id number] AGE/SX: 71/F ROOM: MS316 RE08/07/[address]: Dr. Mercedes Nguyễn MD : 1950 BED: 1 DIS: 08/08/2022 SPEC #: [id number] RECD: 08/07/22 16:43 STATUS: RAMO MAURICIO #: [id number] YOLANDA: 08/07/22 07:[address]: Mercedes Nguyễn DEPT: SURGICAL PATHOLOGY RECD BY: Lillian Colby ENTERED: 08/10/22 11:59 SP TYPE: HYSTERECT OTHR DR: MD Dr. Margarette Dash MD Jessica Franklin [facility] Central Tissues: Uterus, NOS Procedures: Surgery Specimen Level V HEADER OPERATION: ERAS, total vaginal hysterectomy, right salpingo-oophorectomy PRE-OP DIAGNOSIS: Cystocele with third degree uterine prolapse TISSUE SUBMITTED: Uterus, cervix, right ovary, bilateral fallopian tubes MICROSCOPIC DIAGNOSIS Uterus, hysterectomy: Cervix ? squamous metaplasia, nabothian cysts and mild chronic inflammation. Endometrium ? rare cystic atrophic endometrium. Myometrium ? focal adenomyosis and microcalcifications of vessel marquez. Ovary ? corpora albicantia. Fallopian tube - No pathologic change. AM:sammie 08/11/2022 MICROSCOPIC DESCRIPTION Slides are reviewed. GROSS DESCRIPTION Received in fixative is one container labeled with the patient's name and designated uterus. The specimen consists of a uterus with attached cervix measuring 6 x 3 x 2.5 cm and weighing 19 gm. The endocervical canal measures 3.3 cm in length and is grossly unremarkable. The triangular endometrial cavity measures 1.5 x 1.5 cm. The velvety, light hedrick endometrium measures <0.1 cm in thickness. The myometrium measures 1.3 cm in average thickness and is free of mass lesions. Also present free in the container is a crinkled white-hedrick ovary measuring 2.3 x 1.5 x 1 cm. Serial sections of the ovary do not reveal mass lesions. Present free in the container are two fragments of fallopian tubes ranging in size from 1.2 to 3 cm. Patient Registration Clerk sections are submitted as follows: 1 - anterior cervix, 2 - posterior cervix, 3 & 4 - anterior uterine wall, 5 & 6 - posterior uterine wall, 7 - ovary, 8 - fallopian tube. / AM:sammie 08/10/2022 TC:5 CPT: 71617
[2022-08-07] MEDS: Vasopressin 20 UNITS/ML Vial (08:05)
--- NOTE | 2022-08-07 11:15 | PCM.OPRPT ---
Report of Operation Date of Procedure: 08/07/22 Pre-Operative Diagnosis: Incomplete uterovaginal prolapse, stress urinary incontinence Post-Operative Diagnosis: Same Surgery/Procedure Performed:: Posterior repair, right sacrospinous ligament fixation, mid urethral sling, cystoscopy with bilateral ureteral catheterization Surgeon: Margarette Perry Type of Anesthesia: General Estimated Blood Loss (mL): 25 cc Description of Procedure: The patient is a 71-year-old female with pelvic organ prolapse and incontinence who now presents for definitive surgical intervention. Testing was done as an outpatient and informed consent has been obtained. The patient was taken to the operating room and placed on the operating room table. Anesthesia monitored the head, neck, airway, IV access and vital signs throughout the case. Once anesthesia was appropriately administered, the patient was placed into exaggerated dorsal lithotomy in Trendelenburg position. She was appropriately padded and secured to the table. She was then prepped and draped in usual sterile fashion. A Beebe catheter was inserted to straight drain and Dr. Nguyễn completed her portion of the procedure. The case was turned over to ct. The cystocele defect was no longer present. There is a mild apical defect and posterior defect present. The posterior submucosa was injected with vasopressin for hydrostatic dissection and hemostatic control. A midline incision was made and sharp and blunt dissection was performed on both sides until the rectovaginal fascia was identified. On the right side the dissection was extended apically all the way to the ischial spine where the sacrospinous ligament was identified and freed from surrounding tissues. Using Capio device, a sacrospinous ligament was passed through the ligament and brought through the vaginal mucosa in full-thickness fashion. The rectovaginal fascia was then brought together in a 2 layer closure in interrupted fashion using 3-0 PDS. The vaginal mucosa was closed using running interlocking 2-0 Vicryl. The posterior repair was difficult secondary to a very narrow shape of her pelvis. The mid urethra was then isolated and injected submucosally with vasopressin. A midline incision was made and sharp and blunt dissection was performed on either side of the urethra care being taken to avoid entrance into the urethra or the vaginal mucosa. The mid urethral sling was inserted using the trocars. The sling lay flat against the urethra without tension. The tensioning suture was then cut and the midline incision was closed using running interlocking 2-0 Vicryl. The Beebe catheter was removed the patient was taken out of Trendelenburg position. The cystoscope was inserted through the urethra under direct visualization into the urinary bladder. There were no areas of injury to the bladder or the urethra. There was no foreign body or blood within the urinary bladder lumen. Each ureteral orifice was identified in the correct anatomic position and each 1 was cannulated with a 5 Macedonian whistle-tip catheter which easily advanced to 20 cm bilaterally without evidence of obstruction or injury. At this time the cystoscope was removed revealing no issue with the urinary bladder. The coaptation at the area of the sling was visible. The Beebe catheter was then inserted and the balloon was inflated. The vaginal canal was packed with Premarin cream and vaginal packing. The patient was awakened and taken to the recovery room in good condition. There was no complication during the procedure. Grafts/Implants Used: Altis mid urethral sling Complications None Admit VTE Documentation VTE Present on Admission: Yes VTE Mechan Device Prophylaxis: SCD's VTE Pharm Prophylaxis ordered?: Yes
--- NOTE | 2022-08-07 11:21 | EX.PCM.DISCH ---
Discharge Instructions Diet Discharge Diet: No restrictions Activity Discharge Activity: May Not Drive (For 2 weeks) and May Shower May resume sexual activity in: 8 weeks Additional Activity Instructions:: No exercising, no strenuous activity, no lifting over 5 pounds, no vacuuming, no tub bathing, no hot tubs Dressing / Incision Call your doctor if your incision/area has: Continuous Slow Oozing, Sudden Increased Bleeding, Increased Pain/ Swelling and Foul Smelling Discharge Call your doctor if you observe: Fever of 101 or Higher, Inability to urinate and Inability to have a bowel movement Follow Up Care Please Follow Up With: Margarette Perry MD When: Call the office for appointment Test Results: Test results from this visit will be discussed in further detail at your follow-up appointment, if applicable. Discharge Plan Admission Attending Provider: Mercedes Nguyễn Primary Care Provider: [facility] Consult[employer] Providers: Margarette Perry ; Octaviano Vila ; Twila Ribera [employer] Discharge Orders/Prescriptions Prescriptions: New oxycodone-acetaminophen [Percocet] 5-325 mg tablet 1 tab PO Q8H PRN (Reason: pain) 5 Days Qty: 14 0RF cephalexin [cephalexin] 500 mg capsule 500 mg PO Q12 3 Days Qty: 6 0RF Continued cholecalciferol (vitamin D3) 125 mcg (5,000 unit) tablet 125 mcg PO DAILY oxybutynin chloride 10 mg tablet extended release 24hr 10 mg PO DAILY lisinopril 10 mg tablet 10 mg PO QHS simvastatin 10 mg tablet 20 mg PO QHS pantoprazole [Protonix] 40 mg tablet,delayed release (DR/EC) 40 mg PO DAILY dicyclomine 10 mg capsule 10 mg PO DAILY [facility] - Disposition Disposition (needs filled in before D/C Order can be placed): Home, Self Care
[2022-08-07] MEDS: Ondansetron 4 MG/2 ML Vial IV (13:15)
--- NOTE | 2022-08-07 14:28 | OP.PCM_ITS ---
Problems Associated Problem List Diagnoses (1) Cystocele with third degree uterine prolapse: Report of Operation Date of Procedure: 08/07/22 Pre-Operative Diagnosis: see PL Post-Operative Diagnosis: same Surgery/Procedure Performed:: TVH RSO left salpingectomy Description of Surgical Findings:: nl uterus tubes ovaries Surgeon: Mercedes Nguyễn folded towel machine operator: Bo Coles Type of Anesthesia: General Specimen's removed: uterus, tubes, ovaries Drains: malone Fluids Replaced: crystalloid Description of Procedure: Patient was taken to the operating room and was placed under general anesthesia was prepped and draped in normal sterile fashion in the dorsal lithotomy position. Preoperative antibiotics and SCDs and Malone catheter was placed inside the bladder. Weighted speculum was placed in the vagina and the anterior and posterior lip of the cervix was grasped with 2 Alcides clamps and circumferentially injected with dilute vasopressin. A circumferential incision was made with a scalpel and the posterior cul-de-sac was entered into sharply and a longneck speculum was placed. The anterior cul-de-sac was also dissected down and entered into sharply and the uterosacral ligaments were clamped cut and suture ligated bilaterally followed by the cardinal ligaments which were Clamped cut and suture ligated bilaterally with 0 Monocryl. The uterus serially descended and progressive bites were taken bilaterally up to the level of the utero-ovarian ligament bilaterally which was clamped transected and double ligated with 0 Monocryl suture and 0 Vicryl free tie. Bilateral fallopian tubes and ovaries were well visualized and noted be within normal limits and the IP ligament was transected across the base with a addie clamp, then the right ovary and tube was removed and the pedicle double ligated with O monocryl. Excellent hemostasis was noted. The left ovary was unable to be reached safely but the left tube was able to be reached and it was removed and ligated with 0 Monocryl. The vagina was closed with [id number] 0 Vicryl pop offs including the posterior and anterior peritoneum in the reapproximation however some bleeding was noted that was unable to be seen where the origin was and therefore the vaginal cuff closure was taken down and a small area of bleeding noted at the left uterosacral area which was oversewn with 0 Vicryl. Again the cuff closure was done after closing the anterior and posterior peritoneum with 2-0 Vicryl and after this cuff closure there was excellent hemostasis noted. Then Dr. Perry began her portion of the procedure. Grafts/Implants Used: none Complications none Admit VTE Documentation VTE Present on Admission: No VTE Mechan Device Prophylaxis: SCD's VTE Pharm Prophylaxis ordered?: Yes Multi Select Codes Urinary/Genital Urinary/Genital CPT Codes: 95025 TVH+BS/O <250gr uterus
--- NOTE | 2022-08-07 14:46 | SUR.PHASEII ---
attempted to call pt's daughter to inform her that pt's room number is [id number]. no answer, no message left.
[2022-08-07] MEDS: Dextrose 5%-Lactated Ringers 1,000 ML 100 ML IV (16:11)
[2022-08-07] MEDS: Lisinopril 10 MG Tablet PO (21:44)
[2022-08-07] MEDS: Docusate Sodium 100 MG Capsule 200 MG PO (21:44)
[2022-08-07] MEDS: HYDROcodone Bitartrate/Apap 5/325 Tablet PO (21:44)
[2022-08-07] MEDS: Atorvastatin Calcium 10 MG Tablet PO (21:44)
[2022-08-08] MEDS: Dextrose 5%-Lactated Ringers 1,000 ML 100 ML IV (01:41)
[2022-08-08 01:45] VITALS: BP 130/62; PULSE 70; RESP 14; TEMP 36.6; O2SAT 100
[2022-08-08 01:47] VITALS: BMI 29.2
[2022-08-08] MEDS: Enoxaparin 40 MG/0.4 ML Syringe SC (05:21)
[2022-08-08 05:28] VITALS: BP 126/54; PULSE 75; RESP 16; TEMP 36.7; O2SAT 96
[2022-08-08 05:30] VITALS: BMI 29.2
[2022-08-08 07:43] VITALS: O2SAT 95
[2022-08-08] MEDS: HYDROcodone Bitartrate/Apap 5/325 Tablet PO ×2 (07:57→15:04)
[2022-08-08] MEDS: Docusate Sodium 100 MG Capsule 200 MG PO (07:58)
[2022-08-08] MEDS: Dicyclomine 10 MG Capsule PO (07:58)
[2022-08-08] MEDS: Pantoprazole Sodium 40 MG Tablet PO (07:59)
[2022-08-08 08:04] VITALS: BP 102/73; PULSE 70; RESP 16; TEMP 36.9; O2SAT 98
[2022-08-08 08:19] LABS: Absolute Lymphocyte Count 1.92 X10^3/uL (0.83-4.51); Absolute Neutrophil Count 11.3 X10^3/uL (2.0-7.7); Basophil# 0.03 X10^3/uL; Basophil% 0.2 % (0-1); Eosinophil# 0.01 X10^3/uL; Eosinophils% 0.1 % (0-5); Hematocrit 42.1 % (37-47); Hemoglobin 13.2 g/dL (12.0-15.0); Lymphocyte # 1.92 X10^3/ul (0.83-4.51); Lymphocyte % 13.6 % (19-41); Mean Corp Hgb Conc 31.4 g/dL (32-36); Mean Corpuscular Hgb 27.6 pg (27.0-32.0); Mean Corpuscular Volume 87.9 fL (81-99); Mean Platelet Vol. 10.2 fl (6.2-12.0); Monocyte# 0.81 X10^3/uL; Monocyte% 5.7 % (0-10); NRBC Flagged by Analyzer 0 % (0-5); Neutrophil # 11.27 X10^3/uL (2.7-7.7); Platelet Count 252 K/mm3 (150-450); RBC Distribution Width CV 13.6 % (11.6-14.6); RBC Distribution Width SD 43.8 fl (35.1-43.9); Red Blood Count 4.79 M/mm3 (4.2-5.4); White Blood Count 14.1 K/mm3 (4.4-11.0)
[2022-08-08 08:36] LABS: Anion Gap 8 (5-15); BUN 10 mg/dL (7-18); BUN/Creat Ratio 10.4 RATIO (10-20); Chloride 104 mmol/L (98-107); Creatinine, Serum 0.96 mg/dL (0.55-1.02); EST Glomerular Filtration Rate 61 mL/min (>60); Est Glom Filt Rate - Afr Amer 74 mL/min (>60); Estimated Creatinine Clearance 41.74 ml/min; Glucose 148 mg/dL (74-106); Potassium 3.9 mmol/L (3.5-5.1); Sodium Level 141 mmol/L (136-145)
--- NOTE | 2022-08-08 08:54 | DCINST_ITS ---
Discharge Instructions Procedure Hysterectomy, Vaginal Diet Discharge Diet: No restrictions Activity Discharge Activity: Return to Normal Activity, May Not Drive (while taking narcotic pain medications.) and May Shower May resume sexual activity in: 8 weeks Additional Activity Instructions:: No exercising, no strenuous activity, no lifting over 5 pounds, no vacuuming, no tub bathing, no hot tubs Dressing / Incision Call your doctor if your incision/area has: Continuous Slow Oozing, Sudden Increased Bleeding, Increased Pain/ Swelling and Foul Smelling Discharge Call your doctor if you observe: Fever of 101 or Higher, Inability to urinate and Inability to have a bowel movement Follow Up Care Please Follow Up With: Margarette Perry MD Test Results: Test results from this visit will be discussed in further detail at your follow- up appointment, if applicable. Discharge Plan Admission Admit Date/Time: 08/07/22 11:25 Attending Provider: Mercedes Nguyễn Primary Care Provider: [facility] [place] [facility] [employer] Providers: Margarette Perry ; Octaviano Vila ; Twila Ribera FOLDER [employer] Discharge Orders/Prescriptions Prescriptions: New oxycodone-acetaminophen [Percocet] 5-325 mg tablet 1 tab PO Q8H PRN (Reason: pain) 5 Days Qty: 14 0RF cephalexin [cephalexin] 500 mg capsule 500 mg PO Q12 3 Days Qty: 6 0RF Continued cholecalciferol (vitamin D3) 125 mcg (5,000 unit) tablet 125 mcg PO DAILY oxybutynin chloride 10 mg tablet extended release 24hr 10 mg PO DAILY lisinopril 10 mg tablet 10 mg PO QHS simvastatin 10 mg tablet 20 mg PO QHS pantoprazole [Protonix] 40 mg tablet,delayed release (DR/EC) 40 mg PO DAILY dicyclomine 10 mg capsule 10 mg PO DAILY [facility] -
--- NOTE | 2022-08-08 08:54 | PCM.PN.OB ---
Subjective Subjective Patient doing well without complaints. Tolerating PO. Ambulating without difficulty. Denies chest pain, shortness of breath, calf pain/swelling, fevers, chills, lightheadedness. Objective Data Objective Data Vital Signs: Vital Signs Temp Pulse Resp BP Pulse Ox O2 Del Method O2 Flow Rate 98.4 F 70 16 102/73 98 Room Air 2 08/08/22 08:04 08/08/22 08:04 08/08/22 08:04 08/08/22 08:04 08/08/22 08:04 08/08/22 08:04 08/08/22 07:43 Oxygen Flow Rate (L/min) 2 Oxygen Delivery Method Room Air Weight: 154 lb 5.177 oz Body Mass Index (BMI) 29.1 Intake & Output: Intake and Output for Last 24 Hours 08/06/22 08/07/22 08/08/22 23:59 23:59 23:59 Intake Total 2634 / 2634 1170 / 1170 Output Total 1150 / 1150 500 / 500 Balance 1484 / 1484 670 / 670 Lab / Micro Data Result Diagrams: 08/08/22 08:06 08/08/22 08:06 Labs: Laboratory Results - last 24 hr 08/08/22 08:06: WBC 14.1 H, RBC 4.79, Hgb 13.2, Hct 42.1, MCV 87.9, MCH 27.6, MCHC 31.4 L, RDW Std Deviation 43.8, RDW Coeff of Amy 13.6, Plt Count 252, MPV 10.2, Immature Gran % (Auto) 0.400, Neut % (Auto) 80.0 H, Lymph % (Auto) 13.6 L, [place] % (Auto) 5.7, Eos % (Auto) 0.1, Baso % (Auto) 0.2, Absolute Neuts (auto) 11.3 H, Absolute Lymphs (auto) 1.92, Nucleated RBC % 0 08/08/22 08:06: Sodium 141, Potassium 3.9, Chloride 104, Carbon Dioxide 29.0, Anion Gap 8, BUN 10, Creatinine 0.96, Estim Creat Clear Calc 41.74, Est GFR (MDRD) Af Amer 74, Est GFR (MDRD) Non-Af 61, BUN/Creatinine Ratio 10.4, Glucose 148 H, Calcium 9.0 ROS Constitutional Constitutional: Reports systems reviewed and no addt'l complaints, except as documented Cardiovascular Cardiovascular: Reports systems reviewed and no addt'l complaints, except as documented Respiratory/Chest Respiratory/Chest: Reports systems reviewed and no addt'l complaints, except as documented Gastrointestinal Gastrointestinal: Reports systems reviewed and no addt'l complaints, except as documented Physical Exam Const alert, oriented x3 and no apparent distress HEENT Head and Scalp: atraumatic Resp normal respiratory effort GI soft to palpation and non-tender Assessment & Plan (1) Cystocele with third degree uterine prolapse: COMMENT: #3 ring with support estradiol cream. Wants combination case July 2022 Morales Nguyễn/Dariela (2) S/P vaginal hysterectomy: COMMENT: TVHRSOLS combo case with dariela STEIN PLAN: Plan patient is s/p TVHRSOLS POD 1 1. routine ERAS protocol postop care- increase ambulation, encourage oral intake and oral control of pain. lovenox and scds for dvt prophylaxis, patient stable for discharge to home.
--- NOTE | 2022-08-08 10:02 | NURSING ---
Packing and maolne removed per Dr. Nguyễn's orders.
[2022-08-08 15:07] VITALS: BP 116/69; PULSE 70; RESP 18; TEMP 36.6; O2SAT 96
== END 2022-08-08 17:15 | disposition home or self-care (01) ==
LOC: SDC 14:32 → MS3 14:32
PROVIDERS: Anesthesiology; Admitting Provider Urology; Referring Provider Obstetrics & Gynecology; Visit Provider Obstetrics & Gynecology
PROC: (CPT 58260; principal; 2022-08-07 07:10)
PROC: (CPT 57260; 2022-08-07 07:10)
DX: N81.3 Complete uterovaginal prolapse (principal); E55.9 Vitamin D deficiency, unspecified; N39.46 Mixed incontinence; Z87.891 Personal history of nicotine dependence; Z79.899 Other long term (current) drug therapy; K21.9 Gastro-esophageal reflux disease without esophagitis; E78.5 Hyperlipidemia, unspecified; I10 Essential (primary) hypertension; M19.90 Unspecified osteoarthritis, unspecified site; N32.81 Overactive bladder; J45.909 Unspecified asthma, uncomplicated; N95.2 Postmenopausal atrophic vaginitis; R35.1 Nocturia; N36.41 Hypermobility of urethra
CPT/HCPCS: 58262; 57288; 57250; 00944; 36415; 51702; 80048; 82962; 83735; 85025; 86850; 86900; 86901; 88307; 93005; 94668; 96360; 96361; 96372; 99221; 99252; J7120; C1758; G0378; G0463; J2405; J3475

== ENCOUNTER → 2022-11-24 | Outpatient (CLI) | payer MEDICARE, SELFPAY ==
--- NOTE | 2022-11-24 12:18 | BI_ITS ---
MAMMOGRAPHY - BILATERAL SCREENING REASON FOR EXAM: Female, 72 years old. Routine annual screening examination. PERTINENT HISTORY: Non-contributory. TECHNIQUE: Digital bilateral breast ritchie (3D mammographic acquisition) in the CC and MLO projections. 2-D mediolateral oblique (MLO) and craniocaudad (CC) views of both breasts were obtained. CAD: Full Field Digital Mammography with Computer Added Detection was performed. COMPARISON: Mammogram from 08/19/2021, 05/23/2020. FINDINGS: Breast Composition: There are scattered areas of fibroglandular density. There are no dominant masses or suspicious calcifications. No other significant abnormalities are identified. There has been no significant change since the prior study. BI/SCRN MAMM (CAD)W/RITCHIE BILAT IMPRESSION: Stable bilateral screening mammogram. Yearly follow-up mammogram recommended. (A) ASSESSMENT CATEGORY: BIRADS Category 1: Negative. A letter regarding these results will be sent to the patient by the facility within 30 days. Approximately 10% of breast cancers are not detected by mammography. A normal mammogram should not delay biopsy of a clinically suspicious abnormality. Electronically Signed: Joe Prather MD at 16:03 EDT ,
== END | disposition home or self-care (01) ==
LOC: OPBI 12:16
PROVIDERS: Referring Provider Nurse Practitioner Family; Visit Provider Nurse Practitioner Family
DX: Z12.31 Encounter for screening mammogram for malignant neoplasm of breast (principal)
CPT/HCPCS: 77063; 77067

== ENCOUNTER → 2022-12-28 | Outpatient (CLI) | payer MEDICARE, SELFPAY ==
[2022-12-28 10:58] LABS: Absolute Lymphocyte Count 1.82 X10^3/uL (0.83-4.51); Absolute Neutrophil Count 3.4 X10^3/uL (2.0-7.7); Basophil# 0.06 X10^3/uL; Eosinophil# 0.09 X10^3/uL; Eosinophils% 1.5 % (0-5); Hematocrit 46.7 % (37-47); Hemoglobin 14.8 g/dL (12.0-15.0); Lymphocyte # 1.82 X10^3/ul (0.83-4.51); Lymphocyte % 31.3 % (19-41); Mean Corp Hgb Conc 31.7 g/dL (32-36); Mean Corpuscular Hgb 27.3 pg (27.0-32.0); Mean Corpuscular Volume 86.2 fL (81-99); Mean Platelet Vol. 10.7 fl (6.2-12.0); Monocyte# 0.43 X10^3/uL; Monocyte% 7.4 % (0-10); NRBC Flagged by Analyzer 0 % (0-5); Neutrophil % 58.6 % (47-70); Platelet Count 254 K/mm3 (150-450); RBC Distribution Width CV 13.5 % (11.6-14.6); RBC Distribution Width SD 43.1 fl (35.1-43.9); Red Blood Count 5.42 M/mm3 (4.2-5.4); White Blood Count 5.8 K/mm3 (4.4-11.0)
[2022-12-28 11:25] LABS: Hemoglobin A1c 5.6 % (3.8-5.6)
[2022-12-28 11:27] LABS: Vitamin D,25 Hydroxy 80.5 ng/mL
[2022-12-28 11:37] LABS: AST(SGOT) 27 U/L (15-37); Alanine Aminotransfer ALT/SGPT 28 U/L (13-56); Albumin, Serum 3.9 g/dL (3.2-5.0); Alkaline Phosphatase 89 U/L (45-117); Anion Gap 5 (5-15); BUN 12 mg/dL (7-18); BUN/Creat Ratio 11.4 RATIO (10-20); Calcium,Total 9.6 mg/dL (8.5-10.1); Chloride 110 mmol/L (98-107); Cholesterol 205 mg/dL (200); Creatinine, Serum 1.05 mg/dL (0.55-1.02); EST Glomerular Filtration Rate 55 mL/min (>60); Est Glom Filt Rate - Afr Amer 67 mL/min (>60); Globulin 3.9 g/dL (2.2-4.2); Glucose 92 mg/dL (74-106); High Density Lipoprotein 51 mg/dL; Potassium 4.4 mmol/L (3.5-5.1); Protein, Total 7.8 g/dL (6.4-8.2); Sodium Level 141 mmol/L (136-145); Triglycerides 251 mg/dL; Very Low Density Lipoprotein 50 mg/dL (5-40)
== END | disposition home or self-care (01) ==
LOC: LAB 10:10
DX: I10 Essential (primary) hypertension (principal); M81.0 Age-related osteoporosis without current pathological fracture; E78.5 Hyperlipidemia, unspecified; Z83.3 Family history of diabetes mellitus
CPT/HCPCS: 36415; 80053; 80061; 82306; 83036; 84443; 85025

== ENCOUNTER → 2023-05-19 | Outpatient (CLI) | payer MEDICARE, SELFPAY ==
--- NOTE | 2023-05-19 11:50 | RAD_ITS ---
STUDY: X-RAY - LEFT KNEE REASON FOR EXAM: Female, 72 years old. PAIN LEFT KNEE TECHNIQUE: 4 view(s) of the knee. COMPARISON: None. FINDINGS: Normal visualized distal femur. Normal visualized proximal tibia and fibula. Normal proximal tibiofibular articulation. There is no demonstrated fracture. Normal medial femorotibial compartment. Normal lateral femorotibial compartment. Normal patellofemoral articulation. There is no demonstrated joint effusion. The soft tissue structures are unremarkable. RAD/Knee 4 or More Views IMPRESSION: Normal x-ray examination of the knee. Electronically Signed: Elbert Hicks MD at 23:01 EST ,
[2023-05-19 12:22] LABS: Hematocrit 43.3 % (37-47); Hemoglobin 13.8 g/dL (12.0-15.0); Mean Corp Hgb Conc 31.9 g/dL (32-36); Mean Corpuscular Hgb 27.9 pg (27.0-32.0); Mean Corpuscular Volume 87.7 fL (81-99); Mean Platelet Vol. 10.5 fl (6.2-12.0); Platelet Count 261 K/mm3 (150-450); RBC Distribution Width CV 13.5 % (11.6-14.6); RBC Distribution Width SD 43.6 fl (35.1-43.9); Red Blood Count 4.94 M/mm3 (4.2-5.4); White Blood Count 5.2 K/mm3 (4.4-11.0)
[2023-05-19 13:18] LABS: Anion Gap 7 (5-15); BUN 13 mg/dL (7-18); BUN/Creat Ratio 14.3 RATIO (10-20); Chloride 109 mmol/L (98-107); Creatinine, Serum 0.91 mg/dL (0.55-1.02); EST Glomerular Filtration Rate 65 mL/min (>60); Est Glom Filt Rate - Afr Amer 79 mL/min (>60); Glucose 93 mg/dL (74-106); Potassium 4.2 mmol/L (3.5-5.1); Sodium Level 142 mmol/L (136-145)
== END | disposition home or self-care (01) ==
LOC: LAB 11:34
PROVIDERS: Referring Provider Nurse Practitioner Family; Visit Provider Nurse Practitioner Family
DX: I10 Essential (primary) hypertension (principal)
CPT/HCPCS: 36415; 73564; 80048; 85027

== ENCOUNTER → 2023-12-21 | Outpatient (CLI) | payer MEDICARE, SELFPAY ==
[2023-12-21 10:29] LABS: Absolute Lymphocyte Count 1.57 X10^3/uL (0.83-4.51); Absolute Neutrophil Count 3.6 X10^3/uL (2.0-7.7); Basophil# 0.05 X10^3/uL; Basophil% 0.8 % (0-1); Eosinophils% 3.3 % (0-5); Hematocrit 41.7 % (37-47); Hemoglobin 13.6 g/dL (12.0-15.0); Lymphocyte # 1.57 X10^3/ul (0.83-4.51); Lymphocyte % 26.1 % (19-41); Mean Corp Hgb Conc 32.6 g/dL (32-36); Mean Corpuscular Hgb 27.9 pg (27.0-32.0); Mean Corpuscular Volume 85.5 fL (81-99); Mean Platelet Vol. 10.4 fl (6.2-12.0); NRBC Flagged by Analyzer 0 % (0-5); Neutrophil # 3.59 X10^3/uL (2.7-7.7); Neutrophil % 59.6 % (47-70); Platelet Count 244 K/mm3 (150-450); RBC Distribution Width CV 13.1 % (11.6-14.6); RBC Distribution Width SD 40.9 fl (35.1-43.9); Red Blood Count 4.88 M/mm3 (4.2-5.4)
[2023-12-21 11:17] LABS: ALB/GLOB Ratio 0.9 RATIO (0.9-2.4); AST(SGOT) 26 U/L (15-37); Alanine Aminotransfer ALT/SGPT 26 U/L (13-56); Albumin, Serum 3.7 g/dL (3.2-5.0); Alkaline Phosphatase 69 U/L (45-117); Anion Gap 8 (5-15); BUN 20 mg/dL (7-18); Calcium,Total 10.3 mg/dL (8.5-10.1); Chloride 107 mmol/L (98-107); Cholesterol 178 mg/dL (200); Creatinine, Serum 1.11 mg/dL (0.55-1.02); EST Glomerular Filtration Rate 52 mL/min (>60); Est Glom Filt Rate - Afr Amer 62 mL/min (>60); Globulin 3.9 g/dL (2.2-4.2); Glucose 100 mg/dL (74-106); High Density Lipoprotein 50 mg/dL; Protein, Total 7.6 g/dL (6.4-8.2); Sodium Level 139 mmol/L (136-145); Thyroid Stim Hormone (TSH) 2.14 uIU/mL (0.358-3.74); Triglycerides 169 mg/dL; Very Low Density Lipoprotein 34 mg/dL (5-40)
== END | disposition home or self-care (01) ==
PROVIDERS: PCP Nurse Practitioner Family; Referring Provider Nurse Practitioner Family; Visit Provider Nurse Practitioner Family
DX: I10 Essential (primary) hypertension (principal); E78.5 Hyperlipidemia, unspecified
CPT/HCPCS: 36415; 80053; 80061; 84443; 85025

== ENCOUNTER → 2024-01-05 | Outpatient (CLI) | payer MEDICARE, SELFPAY ==
--- NOTE | 2024-01-05 10:17 | BI_ITS ---
MAMMOGRAPHY - BILATERAL SCREENING 3-D TOMOSYNTHESIS REASON FOR EXAM: Female, 73 years old. Encounter for screening mammogram for malignant neoplasm of breas PERTINENT HISTORY: No significant family history. TECHNIQUE: 2-D mammograms and 3-D Tomosynthesis of the breast (s) were performed. CAD was performed. COMPARISON: 11/24/2022 FINDINGS: The breast composition is composed of scattered fibroglandular density. Scattered benign calcifications are seen. No dense spiculated masses or suspicious microcalcifications are identified. No architectural distortion is identified. There is no skin thickening or retraction. There has been no significant change since the prior study. BI/SCRN MAMM (CAD)W/RITCHIE BILAT IMPRESSION: No mammographic signs of malignancy. Routine yearly mammograms recommended. ASSESSMENT CATEGORY: BIRADS Category 1: Negative. A letter regarding these results will be sent to the patient by the facility within 30 days. FOLLOW UP RECOMMENDATION: Yearly follow up mammogram recommended. (A) Approximately 10% of breast cancers are not detected by mammography. A normal mammogram should not delay biopsy of a clinically suspicious abnormality. Electronically Signed: Fahad Gallego MD at 18:56 EDT ,
== END | disposition home or self-care (01) ==
LOC: OPBI 10:15
PROVIDERS: PCP Nurse Practitioner Family; Referring Provider Nurse Practitioner Family; Visit Provider Nurse Practitioner Family
DX: Z12.31 Encounter for screening mammogram for malignant neoplasm of breast (principal)
CPT/HCPCS: 77063; 77067

== ENCOUNTER → 2024-03-02 | Outpatient (CLI) | payer MEDICARE, SELFPAY ==
--- NOTE | 2024-03-02 11:30 | RAD_ITS ---
STUDY: X-RAY - RIGHT SHOULDER REASON FOR EXAM: Female, 73 years old. PAIN IN RIGHT SHOULDER TECHNIQUE: 4 view(s) of the shoulder. COMPARISON: None. FINDINGS: Normal glenohumeral articulation. There is degenerative arthrosis of the acromioclavicular joint without inferior osseous spur formation. Normal acromion. Normal humeral head and visualized proximal humerus. The soft tissue structures are unremarkable. There is no demonstrated fracture. Normal visualized pulmonary apex. RAD/Shoulder min 2 Views IMPRESSION: Mild acromioclavicular arthrosis. Electronically Signed: Miles Briones MD at 10:06 EDT ,
== END | disposition home or self-care (01) ==
LOC: RAD 11:21
PROVIDERS: PCP Nurse Practitioner Family; Referring Provider Nurse Practitioner Family; Visit Provider Nurse Practitioner Family
DX: M25.511 Pain in right shoulder (principal)
CPT/HCPCS: 73030

== ENCOUNTER → 2024-11-22 | Outpatient (CLI) | payer MEDICARE, SELFPAY ==
[2024-11-22 16:52] LABS: Absolute Lymphocyte Count 1.63 X10^3/uL (0.83-4.51); Absolute Neutrophil Count 3.5 X10^3/uL (2.0-7.7); Basophil# 0.06 X10^3/uL; Eosinophil# 0.11 X10^3/uL; Eosinophils% 1.9 % (0-5); Hematocrit 41.2 % (37-47); Hemoglobin 13.7 g/dL (12.0-15.0); Lymphocyte # 1.63 X10^3/ul (0.83-4.51); Lymphocyte % 28.2 % (19-41); Mean Corp Hgb Conc 33.3 g/dL (32-36); Mean Corpuscular Hgb 28.2 pg (27.0-32.0); Mean Corpuscular Volume 84.9 fL (81-99); Mean Platelet Vol. 10.5 fl (6.2-12.0); Monocyte% 8.6 % (0-10); NRBC Flagged by Analyzer 0 % (0-5); Neutrophil # 3.48 X10^3/uL (2.7-7.7); Neutrophil % 60.1 % (47-70); Platelet Count 246 K/mm3 (150-450); RBC Distribution Width CV 13.3 % (11.6-14.6); RBC Distribution Width SD 41.6 fl (35.1-43.9); Red Blood Count 4.85 M/mm3 (4.2-5.4); White Blood Count 5.8 K/mm3 (4.4-11.0)
[2024-11-23 11:10] LABS: ALB/GLOB Ratio 1.5 RATIO (0.9-2.4); AST(SGOT) 27 U/L (<=31); Alanine Aminotransfer ALT/SGPT 18 U/L (<=34); Albumin, Serum 4.4 g/dL (3.4-4.8); Alkaline Phosphatase 64 U/L (35-104); Anion Gap 11 (5-15); BUN 15 mg/dL (4-19); BUN/Creat Ratio 16.4 RATIO (10-20); Carbon Dioxide 23.5 mmol/L (21.0-32.0); Chloride 106 mmol/L (98-108); Cholesterol 201 mg/dL (<=200); Creatinine, Serum 0.93 mg/dL (0.70-1.20); EST Glomerular Filtration Rate 65 (>60); Globulin 2.9 g/dL (2.2-4.2); Glucose 76 mg/dL (70-99); High Density Lipoprotein 57 mg/dL; Low Density Lipoprotein Calc. 109 mg/dL; Potassium 4.5 mmol/L (3.3-5.1); Protein, Total 7.4 g/dL (5.9-8.4); Sodium Level 140 mmol/L (133-145); Total Bilirubin 0.38 mg/dL (0.00-1.30); Triglycerides 177 mg/dL; Very Low Density Lipoprotein 35 mg/dL (5-40); Vitamin D,25 Hydroxy 39.8 ng/mL (30-100); cholesterol:hdl ratio screen 3.56
== END | disposition home or self-care (01) ==
PROVIDERS: PCP Nurse Practitioner Family; Visit Provider Nurse Practitioner Family
DX: E78.5 Hyperlipidemia, unspecified (principal); I10 Essential (primary) hypertension; M81.0 Age-related osteoporosis without current pathological fracture
CPT/HCPCS: 36415; 80053; 80061; 82306; 84443; 85025

== ENCOUNTER → 2024-11-23 | Outpatient (CLI) | payer MEDICARE, SELFPAY ==
--- NOTE | 2024-11-23 16:15 | RAD_ITS ---
PROCEDURE: KNEE 3 VIEWS 11/23/2024 REASON FOR EXAM: PAIN IN RIGHT KNEE TECHNIQUE: Three views of the right knee COMPARISON: None RAD/Knee 3 Views IMPRESSION: Mild diffuse soft tissue edema. No large joint effusion. No acute fracture or dislocation. Very minimal degenerative changes. Reading Location: [id number]
== END | disposition home or self-care (01) ==
LOC: RAD 16:05
PROVIDERS: PCP Nurse Practitioner Family; Referring Provider Nurse Practitioner Family; Visit Provider Nurse Practitioner Family
DX: M25.561 Pain in right knee (principal)
CPT/HCPCS: 73562

== ENCOUNTER → 2025-05-15 | Outpatient (CLI) | payer MEDICARE, SELFPAY ==
--- NOTE | 2025-05-15 11:16 | BI_ITS ---
EXAM: SCREENING MAMM (CAD), BILAT DATE: 05/15/2025 CLINICAL HISTORY: F, Age 74 y/o , SCREENING No family history. TECHNIQUE: Procedure Code: [id number] Modality: MG Procedure: SCREENING MAMM (CAD), BILAT COMPARISON: Prior exam(s) dated January 05, 2024.. FINDINGS: TISSUE DENSITY: There are scattered areas of fibroglandular density. Bilateral Breast Mammographic Findings: No significant masses, calcifications or other abnormalities are identified. No suspicious masses, areas of developing architectural distortion, or suspicious calcifications. There has been no significant interval change. BI/SCREENING MAMM (CAD), BILAT IMPRESSION: Stable bilateral screening mammogram. OVERALL FINAL ASSESSMENT BI-RADS 1: NEGATIVE. RECOMMENDATION: Routine annual follow-up in 1 Year Additional Recommendation none A letter with findings and recommendations will be mailed to the patient. Reading Location: [id number]
--- OUTSIDE RECORDS SUMMARY | 2025-05-15 12:42 | XMS RPT_ITS | CCD ---
Author Organization [facility] Care Team Providers Care Thread Marker Name Role Phone [facility], Springer Woody Primary Care Pro vider [facility], Benjamín Mckay Attending Provid er [facility], Benjamín Mckay Referring Provid er Karo MOSAICIST, MOSAICIST-C Flor Attending Provider [phone] [facility], Springer Woody Primary Care Pro vider Dr. Mercedes Nguyễn Attending Provider [phone] [facility], Benjamín Mckay Primary Care Pro vider [facility], Benjamín Mckay Referring Provid er ANURADHA Huddleston NPC Flor Attending Provider [phone] Dr. Mercedes Nguyễn Attending Provider [phone] Dr. Mercedes Nguyễn Referring Provider [phone] Dr. Mercedes Nguyễn Other Provider [phone] Dr. Octaviano Vila Other Provider Bacilio MOSAICIST, MOSAICIST-C Twila Other Provider Dr. Margarette Perry Other Provider Dr. Margarette Perry Admit Provider Bacilio MOSAICIST-C, Twila Primary Care Provider Bacilio MOSAICIST-C, Twila Attending Provider Bacilio MOSAICIST-C, Twila Referring Provider Bacilio BARAHONACTwila Attending Unavailabl e [facility], Twila Primary Care Unavailabl e [facility], Twila Referring Unavailabl e [facility], Twila Attending Unavailabl e [facility], Twila Primary Care Unavailabl e [facility], Twila Attending Unavailabl e Bacilio [facility], Twila Primary Care Unavailabl e [facility], Twila Attending Unavailabl e [facility], Twila Primary Care Unavailabl e [facility], Twila Referring Unavailabl e Allergies Allergy Classification Reported Allergen(s) Allergy Type Date of Onset Reaction(s) Facility (8 sources) celecoxib Drug Allergy 10-29-2021 Rash [facility] (1 source) celecoxib Drug Allergy 08-20-2022 [facility] Repository Medications Current Medications Medication Drug Class(es) Dates Sig (Normalized) Sig (Original) acetaminophen 325 mg / oxyCODONE hydrochloride 5 mg oral tablet (5 sources) Opioid Agonist Start: 08-07-2022 take 1 tablet by mouth every eight hours as needed for pain Oxycodone-Acetamino phen (Percocet) 5-325 mg tablet Active 1 {tbl} PO Q8H as needed for pain 14 August 07, 2022 cephalexin 500 mg oral capsule (5 sources) Cephalosporin Antibacterial Start: 08-07-2022 take 1 capsule by mouth every twelve hours Cephalexin 500 mg capsule Active 500 mg PO EVERY 12 HOURS 6 August 07, 2022 1:00am cholecalciferol 0.125 mg oral tablet (8 sources) Vitamin D Start: 09-19-2019 take 1 tablet by mouth once daily Cholecalciferol (Vitamin D3) 125 mcg (5,000 unit) tablet Active 125 ug PO DAILY September 19, 2019 12:00am dicyclomine hydrochloride 10 mg oral capsule (20 sources) Anticholinergic Start: 01-22-2022 take 1 capsule by mouth once daily Dicyclomine 10 mg capsule Active 10 mg PO DAILY January 22, 2022 12:00am Start: 01-22-2022 take 10 mg by mouth twice gianni y Dicyclomine Active 10 MG PO TWICE A DAY January 22, 2022 12:00am Start: 11-08-2020 End: 01-07-2021 take 1 capsule by mouth three times daily Dicyclomine 10 mg capsule Discontinued 10 mg PO THREE TIMES A DAY November 29, 2020 1:09pm January 07, 2021 1:05pm lisinopril 10 mg oral tablet (8 sources) Angiotensin Converting Enzyme Inhibitor Start: 09-19-2019 take 1 tablet by mouth at bedtime Lisinopril 10 mg tablet Active 10 mg PO AT BEDTIME September 19, 2019 12:00am 24 hr oxybutynin chloride 10 mg extended release oral tablet (8 sources) Cholinergic Muscarinic Antagonist Start: 09-19-2019 take 1 tablet by mouth once daily Oxybutynin Chloride 10 mg tablet extended release 24hr Active 10 mg PO DAILY September 19, 2019 12:00am pantoprazole 40 mg delayed release oral tablet (7 sources) Proton Pump Inhibitor Start: 01-22-2022 take 1 tablet by mouth once daily Pantoprazole (Protonix) 40 mg tablet,delayed release (DR/EC) Active 40 mg PO DAILY January 22, 2022 12:00am simvastatin 10 mg oral tablet (16 sources) HMG-CoA Reductase Inhibitor Start: 10-22-2021 take 2 tablets by mouth at bedtime Simvastatin 10 mg tablet Active 20 mg PO AT BEDTIME October 22, 2021 11:50am Start: 10-22-2021 take 20 mg by mouth at bedtime Simvastatin Active 20 MG PO AT BEDTIME October 22, 2021 11:50am Start: 09-19-2019 End: 10-22-2021 take 1 tablet by mouth at bedtime Simvastatin 10 mg tablet Discontinued 10 mg PO AT BEDTIME September 19, 2019 12:00am October 22, 2021 11:50am Completed/Discontinued Medications Medication Drug Class(es) Dates Sig (Normalized) Sig (Original) estradiol 0.1 mg/ml vaginal cream (8 sources) Estrogen Start: 10-22-2021 End: 01-22-2022 Estradiol 0.01 % (0.1 mg/gram) cream Discontinued 0 VAGINAL .COMPLEX 42.5 October 22, 2021 12:00am January 22, 2022 11:08am small amount as directed vaginal every other day X 4 weeks then twice a week; Start: 10-22-2021 End: 01-22-2022 Estradiol Discontinued 0 VAG INAL .COMPLEX 42.5 October 22, 2021 12:00am January 22, 2022 11:08am small amount as directed vaginal every other day X 4 weeks then twice a week; fluticasone propionate 0.05 mg/actuat metered dose nasal spray (8 sources) Corticosteroid Start: 11-08-2020 End: 01-22-2022 Fluticasone Propionate 50 mcg/actuation spray,suspension Discontinued NMA INTRANASAL November 08, 2020 12:00am January 22, 2022 11:09am metroNIDAZOLE 500 mg oral tablet (4 sources) Nitroimidazole Antimicrobial Start: 08-20-2022 End: 08-27-2022 take 1 tablet by mouth twice daily Metronidazole 500 mg tablet Discontinued 500 mg PO TWICE A DAY 14 August 20, 2022 1:00am August 26, 2022 1:00am August 27, 2022 1:04am nitrofurantoin, macrocrystals 100 mg oral capsule (8 sources) Nitrofuran Antibacterial Start: 10-29-2021 End: 11-05-2021 take 1 capsule by mouth twice daily at mealtime Nitrofurantoin Macrocrystal 100 mg capsule Discontinued 100 mg PO TWICE A DAY 14 October 29, 2021 12:00am November 04, 2021 12:00am November 05, 2021 12:04am administer with food (meal or snack) omega-3 acid ethyl esters (mcfp) 1000 mg oral capsule (8 sources) Start: 11-08-2020 End: 01-22-2022 [place] 6-Mli-Kdx-Fish Oil (Fish Oil) 1,000 mg (120 mg-180 mg) capsule Discontinued 1 NMA PO DAILY November 08, 2020 12:00am January 22, 2022 11:09am omeprazole 40 mg delayed release oral capsule (8 sources) Proton Pump Inhibitor Start: 11-08-2020 End: 10-22-2021 Omeprazole 40 mg capsule,delayed release(DR/EC) Discontinued NMA PO November 08, 2020 12:00am October 22, 2021 11:49am Start: 11-08-2020 End: 10-22-2021 Omeprazole Discontinued EACH PO November 08, 2020 12:00am October 22, 2021 11:49am Problems Active Problems Problem Classification Problem Date Documented Da te Episodic/Chronic Abdominal pain (2 sources) Lower abdominal pain; Translations: [Right lower quadrant pain] Episodic Disorders of lipid metabolism (9 sources) Hyperlipidemia; Translations: [Hyperlipidemia, unspecified] Onset: 09-19-2019 Chronic Esophageal disorders (8 sources) Gastroesophageal reflux disease; Translations: [Gastro-esophageal reflux disease without esophagitis] 11-08-2020 Chronic Essential hypertension (8 sources) Essential hypertension; Translations: [Essential (primary) hypertension] 07-31-2022 Chronic Comment on above: CONTROLLED ON MED Menopausal disorders (19 sources) Atrophic vaginitis; Translations: [Postmenopausal atrophic vaginitis] Chronic Comment on above: estradiol cream Nonspecific chest pain (2 sources) Chest pain; Translations: [Chest pain, unspecified] Episodic Osteoarthritis (8 sources) Osteoarthritis; Translations: [Unspecified osteoarthritis, unspecified site] 11-08-2020 Chronic Other gastrointestinal disorders (2 sources) Diarrhea; Translations: [Diarrhea, unspecified] Episodic Other screening for suspected conditions (not mental disorders or infectious disease) (17 sources) Imaging of biliary tract abnormal; Translations: [Abnormal results of function studies of other organs and systems] Onset: 11-08-2020 Episodic Prolapse of female genital organs (20 sources) Cystocele with third degree uterine prolapse; Translations: [Complete uterovaginal prolapse] Chronic Comment on above: #3 ring with support estradiol cream. Wants combination case July 2022 Morales Nguyễn/[facility] care; fitting of prostheses; and adjustment of devices (18 sources) Patient encounter status; Translations: [Encounter for fitting and adjustment of other specified devices] Chronic Residual codes; unclassified (7 sources) Family history of malignant neoplasm of ovary; Translations: [Family history of malignant neoplasm of ovary] 02-11-2022 Episodic Comment on above: empower test negativ e, pelvic US nl Residual codes; unclassified (5 sources) History of vaginal hysterectomy; Translations: [Acquired absence of both cervix and uterus] 08-08-2022 Episodic Comment on above: TVHRSOLS combo case with vicky STEIN Residual codes; unclassified (1 source) Family history of malignant neoplasm of ovary; Translations: [Family history of malignant neoplasm of ovary] 07-27-2022 Episodic Residual codes; unclassified (1 source) Acquired absence of both cervix and uterus; Translations: [Acquired absence of both cervix and uterus] 08-08-2022 Episodic Urinary tract infections (2 sources) Urinary tract infection, site not specified; Translations: [Urinary tract infection, site not specified] Episodic Past or Other Problems Problem Classification Problem Date Documented Da te Episodic/Chronic Other non-traumatic joint disorders (1 source) Pain in right knee; Translations: [Pain in right knee] Onset: 11-30-2024 Episodic Results Test Name Value Interpretation Reference Range Facility [facility] rhonda 11-23-2024 Albumin [Mass/Vol] 4.4 g/dL Normal 3.4-4.8 [facility] Comment on above: Performed By: #### L 100.0100, L500.4100, L501.9520, L506.1001, L500.4050 #### [facility] [address] [place], [address] Albumin/Globulin [Mass ratio] 1.5 {ratio} Normal 0.9-2.4 [facility] Comment on above: Performed By: #### L 100.0100, L500.4100, L501.9520, L506.1001, L500.4050 #### [facility] [address] [place], [address] ALK PHOS 64 U/L Normal 35-104 [facility] Comment on above: Performed By: #### L 100.0100, L500.4100, L501.9520, L506.1001, L500.4050 #### [facility] [address] [place], [address] ALT [Catalytic activity/Vol] 18 U/L Normal <=34 [facility] Comment on above: Performed By: #### L 100.0100, L500.4100, L501.9520, L506.1001, L500.4050 #### [facility] [address] [place], [address] AST [Catalytic activity/Vol] 27 U/L Normal <=31 [facility] Comment on above: Performed By: #### L 100.0100, L500.4100, L501.9520, L506.1001, L500.4050 #### [facility] [address] [place], [address] Bilirubin [Mass/Vol] 0.38 mg/dL Normal 0.00-1.30 [facility] Comment on above: Performed By: #### L 100.0100, L500.4100, L501.9520, L506.1001, L500.4050 #### [facility] [address] [place], [address] BUN/CRE 16.4 RATIO Normal 10-20 [facility] Comment on above: Performed By: #### L 100.0100, L500.4100, L501.9520, L506.1001, L500.4050 #### [facility] [address] [place], [address] Calcium [Mass/Vol] 10.0 mg/dL Normal 7.6-11.0 [facility] Comment on above: Performed By: #### L 100.0100, L500.4100, L501.9520, L506.1001, L500.4050 #### [facility] [address] [place], [address] Chloride [Moles/Vol] 106 mmol/L Normal 98-108 [facility] Comment on above: Performed By: #### L 100.0100, L500.4100, L501.9520, L506.1001, L500.4050 #### [facility] [address] [place], [address] CO2 [Moles/Vol] 23.5 mmol/L Normal 21.0-32.0 [facility] Comment on above: Performed By: #### L 100.0100, L500.4100, L501.9520, L506.1001, L500.4050 #### [facility] [address] [place], [address] Creatinine [Mass/Vol] 0.93 mg/dL Normal 0.70-1.20 [facility] Comment on above: Performed By: #### L 100.0100, L500.4100, L501.9520, L506.1001, L500.4050 #### [facility] [address] [place], [address] GAP 11 Normal 5-15 [facility] Comment on above: Performed By: #### L 100.0100, L500.4100, L501.9520, L506.1001, L500.4050 #### [facility] [address] [place], [address] GFR/1.73 sq M.predicted among non-blacks MDRD (S/P/Bld) [Vol rate/Area] 65 mL/min/{1.73_m2} Normal >60 [facility] Comment on above: Result Comment: mL/m in/1.73m2 CKD-EPI Creatinine Equation (2020) Performed By: #### L 100.0100, L500.4100, L501.9520, L506.1001, L500.4050 #### [facility] [address] [place], [address] Globulin (S) [Mass/Vol] 2.9 g/dL Normal 2.2-4.2 [facility] Comment on above: Performed By: #### L 100.0100, L500.4100, L501.9520, L506.1001, L500.4050 #### [facility] [address] [place], [address] Glucose [Mass/Vol] 76 mg/dL Normal 70-99 [facility] Comment on above: Performed By: #### L 100.0100, L500.4100, L501.9520, L506.1001, L500.4050 #### [facility] [address] [place], [address] Potassium [Moles/Vol] 4.5 mmol/L Normal 3.3-5.1 [facility] Comment on above: Performed By: #### L 100.0100, L500.4100, L501.9520, L506.1001, L500.4050 #### [facility] [address] [place], [address] Sodium [Moles/Vol] 140 mmol/L Normal 133-145 [facility] Comment on above: Performed By: #### L 100.0100, L500.4100, L501.9520, L506.1001, L500.4050 #### [facility] [address] [place], [address] T PROT 7.4 g/dL Normal 5.9-8.4 [facility] Comment on above: Performed By: #### L 100.0100, L500.4100, L501.9520, L506.1001, L500.4050 #### [facility] [address] [place], [address] Urea nitrogen [Mass/Vol] 15 mg/dL Normal 4-19 [facility] Comment on above: Performed By: #### L 100.0100, L500.4100, L501.9520, L506.1001, L500.4050 #### [facility] [address] [place], [address] Knee 3 Viewson 11-23-2024 Knee 3 Views [facility] Imaging Services [address] [place] [address] Knee 3 Views MR#: [id number] Acct: [id number] Name: BERNICE WEST CHARLINE Rep #: [id number] : 1950 F 74 From: Nadine Crandall PCP: FALGUNI Quevedo, MOSAICIST-C Status: REG CLI Study: Knee 3 Views Date of Exam: 11/23/24 Exam# [id number] Ordering Dr: Twila Ribera MOSAICIST-C PROCEDURE: KNEE 3 VIEWS 11/23/2024 REASON FOR EXAM: PAIN IN RIGHT KNEE TECHNIQUE: Three views of the right knee COMPARISON: None RAD/Knee 3 Views IMPRESSION: Mild diffuse soft tissue edema. No large joint effusion. No acute fracture or dislocation. Very minimal degenerative changes. Reading Location: [id number] CC: [facility] MOSAICIST-C Twila Ribera Supervisor Train Operations: Signed Normal [facility] Lipid Profileon 11-23-2024 CHOL:HDL 3.56 Normal [facility] Comment on above: Performed By: #### L 100.0100, L500.4100, L501.9520, L506.1001, L500.4050 #### [facility] [address] [place], [place], [id number] (700) Cholesterol [Mass/Vol] 201 mg/dL Normal <=200 [facility] Comment on above: Result Comment: Chol esterol level, Desirable <200 mg/dL Borderline high cholesterol 200-239 mg/dL High cholesterol >=240 mg/dL Recommendations of the NCEP Adult Treatment Panel for the following risk-cutoff thresholds for the [place] population. Performed By: #### L 100.0100, L500.4100, L501.9520, L506.1001, L500.4050 #### [facility] [address] [place], [place], [address] (781) Cholesterol in HDL [Mass/Vol] 57 mg/dL Normal [facility] Comment on above: Result Comment: Cece onal Cholesterol Education Program (NCEP) guidelines: <40 mg/dL: Low HDL-cholesterol (major risk factor for CHD) >= 60 mg/dL: High HDL-cholesterol (negative risk factor for CHD) HDL-cholesterol is affected by a number of factors, e.g. smoking, exercise, hormones, sex and age. Performed By: #### L 100.0100, L500.4100, L501.9520, L506.1001, L500.4050 #### [facility] [address] [place], [address] Cholesterol in LDL [Mass/Vol] 109 mg/dL Normal [facility] Comment on above: Result Comment: Bord yonkwj=563-846 mg/dL Higher Tbmq=106 mg/dL or greater Performed By: #### L 100.0100, L500.4100, L501.9520, L506.1001, L500.4050 #### [facility] [address] [place], [address] Cholesterol in VLDL [Mass/Vol] 35 mg/dL Normal 5-40 [facility] Comment on above: Performed By: #### L 100.0100, L500.4100, L501.9520, L506.1001, L500.4050 #### [facility] [address] [place], [address] Triglyceride [Mass/Vol] 177 mg/dL Normal [facility] Comment on above: Result Comment: The drugs N-Acetylcysteine and Metamizole may falsely depress this assay. Normal range: <150 mg/dL Borderline High: 150-199 mg/dL High: 200-499 mg/dL Very High: >500 mg/dL Performed By: #### L 100.0100, L500.4100, L501.9520, L506.1001, L500.4050 #### [facility] [address] [place], [address] Thyroid Stim Hormone (TSH)on 11-23-2024 TSH 2.510 uIU/mL Normal 0.300-4.200 [facility] Comment on above: Performed By: #### L 100.0100, L500.4100, L501.9520, L506.1001, L500.4050 #### [facility] [address] [place], [address] Vitamin D,25 Hydroxyon 11-23 Vitamin D 25-OH 39.8 ng/mL Normal 30-100 [facility] Comment on above: Result Comment: Brenna min D Status Deficiency: <20 ng/mL (50nmol/L) Insufficiency: 20-30 ng/mL (50-75 nmol/L) Sufficiency: 30-100 ng/mL (75-250 nmol/L) Toxicity: >100 ng/mL (>250 nmol/L) Performed By: #### L 100.0100, L500.4100, L501.9520, L506.1001, L500.4050 #### [facility] [place], [address] Absolute lymphocyte countOrd ered By: [facility] Twila Ribera on 11-22-2024 Lymphocytes Auto (Unsp spec) [#/Vol] 1.63 10*3/uL 0.83-4.51 [facility] Absolute neutrophil countOrd ered By: [facility] Ribera on 11-22-2024 Neutrophils (Bld) [#/Vol] 3.5 10*3/uL 2.0-7.7 [facility] Anion gap in Serum or Plasma Ordered By: [facility] Healthcare[facility]il[facility]at Ribera on 11-22-2024 Anion gap [Moles/Vol] 11 mmol/L 5-15 [facility] Automated lymphocyte count a s percentage of total leukocytesOrdered By: [facility] HealthcareTwilamat Ribera on 11-22-2024 Lymphocytes/100 WBC Auto (Unsp spec) 28.2 % 19-41 [facility] BUN/creatinine ratioOrdered By: [facility] Rib[facility] on 11-22-2024 Urea nitrogen/Creatinine [Mass ratio] 16.4 mg/mg 10-20 [facility] Basophil percentageOrdered B y: [facility] Twila Ribera on 11-22-2024 Basophils/100 WBC (Bld) 1.0 % 0-1 [facility] Bilirubin, totalOrdered By: [facility] Twila Ribera on 11-22-2024 Bilirubin [Mass/Vol] 0.38 mg/dL 0.00-1.30 [facility] CBC W/Diff, Automatedon 11-03 Absolute Lymph 1.63 X10 3/uL Normal 0.83-4.51 [facility] Comment on above: Performed By: #### L 100.0100, L500.4100, L501.9520, L506.1001, L500.4050 #### [facility] [address] [place], [address] Absolute Neut 3.5 X10 3/uL Normal 2.0-7.7 [facility] Comment on above: Performed By: #### L 100.0100, L500.4100, L501.9520, L506.1001, L500.4050 #### [facility] [address] [place], [address] Basophils/100 WBC (Bld) 1.0 % Normal 0-1 [facility] Comment on above: Performed By: #### L 100.0100, L500.4100, L501.9520, L506.1001, L500.4050 #### [facility] [address] [place], [address] Eosinophils/100 WBC (Bld) 1.9 % Normal 0-5 [facility] Comment on above: Performed By: #### L 100.0100, L500.4100, L501.9520, L506.1001, L500.4050 #### [facility] [address] [place], [address] Erythrocyte distribution width (RBC) [Ratio] 13.3 % Normal 11.6-14.6 [facility] Comment on above: Performed By: #### L 100.0100, L500.4100, L501.9520, L506.1001, L500.4050 #### [facility] [address] [place], [address] Hematocrit (Bld) [Volume fraction] 41.2 % Normal 37-47 [facility] Comment on above: Performed By: #### L 100.0100, L500.4100, L501.9520, L506.1001, L500.4050 #### [facility] [address] [place], [address] Hemoglobin (Bld) [Mass/Vol] 13.7 g/dL Normal 12.0-15.0 [facility] Comment on above: Performed By: #### L 100.0100, L500.4100, L501.9520, L506.1001, L500.4050 #### [facility] [address] [place], [address] IG% 0.200 Normal 0.0-0.9 [facility] Comment on above: Result Comment: IG% - Immature Granulocytes (promyelocytes, myelocytes and metamyelocytes) > 1% indicates that a LEFT SHIFT is Present. Performed By: #### L 100.0100, L500.4100, L501.9520, L506.1001, L500.4050 #### [facility] [address] [place], [address] Lymphocytes/100 WBC (Bld) 28.2 % Normal 19-41 [facility] Comment on above: Performed By: #### L 100.0100, L500.4100, L501.9520, L506.1001, L500.4050 #### [facility] [address] [place], [address] MCH (RBC) [Entitic mass] 28.2 pg Normal 27.0-32.0 [facility] Comment on above: Performed By: #### L 100.0100, L500.4100, L501.9520, L506.1001, L500.4050 #### [facility] [address] [place], [address] MCHC (RBC) [Mass/Vol] 33.3 g/dL Normal 32-36 [facility] Comment on above: Performed By: #### L 100.0100, L500.4100, L501.9520, L506.1001, L500.4050 #### [facility] [address] [place], [address] MCV (RBC) [Entitic vol] 84.9 fL Normal 81-99 [facility] Comment on above: Performed By: #### L 100.0100, L500.4100, L501.9520, L506.1001, L500.4050 #### [facility] [address] [place], [address] Monocytes/100 WBC (Bld) 8.6 % Normal 0-10 [facility] Comment on above: Performed By: #### L 100.0100, L500.4100, L501.9520, L506.1001, L500.4050 #### [facility] [address] [place], [address] Neutrophils/100 WBC (Bld) 60.1 % Normal 47-70 [facility] Comment on above: Performed By: #### L 100.0100, L500.4100, L501.9520, L506.1001, L500.4050 #### [facility] [address] [place], [address] Nucleated RBC (Bld) [#/Vol] 0 10*3/uL Normal 0-5 [facility] Comment on above: Performed By: #### L 100.0100, L500.4100, L501.9520, L506.1001, L500.4050 #### [facility] [address] [place], [address] Platelet mean volume (Bld) [Entitic vol] 10.5 fL Normal 6.2-12.0 [facility] [facility] Comment on above: Performed By: #### L 100.0100, L500.4100, L501.9520, L506.1001, L500.4050 #### [facility] [address] [place], [address] Platelets (Bld) [#/Vol] 246 10*3/uL Normal 150-450 [facility] Comment on above: Performed By: #### L 100.0100, L500.4100, L501.9520, L506.1001, L500.4050 #### [facility] [address] [place], [address] RBC (Bld) [#/Vol] 4.85 10*6/uL Normal 4.2-5.4 [facility] Comment on above: Performed By: #### L 100.0100, L500.4100, L501.9520, L506.1001, L500.4050 #### [facility] [address] [place], [address] RDW SD 41.6 fl Normal 35.1-43.9 [facility] Comment on above: Performed By: #### L 100.0100, L500.4100, L501.9520, L506.1001, L500.4050 #### [facility] [address] [place], [address] WBC (Bld) [#/Vol] 5.8 10*3/uL Normal 4.4-11.0 [facility] Comment on above: Performed By: #### L 100.0100, L500.4100, L501.9520, L506.1001, L500.4050 #### [facility] [address] [place], [address] Calculated very low density lipoprotein (VLDL) cholesterol measurementOrdered By: [facility] Twila Ribera on 11-22-2024 Calculated very low density lipoprotein (VLDL) cholesterol measurement 35 mg/dL 5-40 [facility] Carbon dioxide, total [Moles /volume] in Central venous bloodOrdered By: [facility] Twila Ribera on 11-22-2024 CO2 [Moles/Vol] 23.5 mmol/L 21.0-32.0 [facility] Chloride assayOrdered By: [facility] Twila Ribera on 11-22-2024 Chloride [Moles/Vol] 106 mmol/L 98-108 [facility] Eosinophil percentageOrdered By: [facility] Twila Bacilio on 11-22-2024 Eosinophils/100 WBC (Bld) 1.9 % 0-5 [facility] Erythrocyte distribution wid th ratioOrdered By: [facility] Bacliio on 11-22-2024 Erythrocyte distribution width (RBC) [Ratio] 13.3 % 11.6-14.6 [facility] Erythrocyte distribution wid th standard deviationOrdered By: [facility] Bacilio on 11-22-2024 Erythrocyte distribution width (RBC) [Ratio] 41.6 fl 35.1-43.9 [facility] Glomerular filtration rate ( GFR) estimation/1.73 sq m using serum, plasma, or whole bOrdered By: [facility] on 11-22-2024 GFR/1.73 sq M.predicted among non-blacks MDRD (S/P/Bld) [Vol rate/Area] 65 mL/min/{1.73_m2} >60 [facility] Comment on above: mL/min/1.73m2 CKD-EP I Creatinine Equation (2020) Hematocrit Auto (Bld) [Volum e fraction]Ordered By: [facility] on 11-22-2024 Hematocrit (Bld) [Volume fraction] 41.2 % 37-47 [facility] Hemoglobin measurementOrdere d By: [facility] on 11-22-2024 Hemoglobin (Bld) [Mass/Vol] 13.7 g/dL 12.0-15.0 [facility] Immature granulocytes/100 WB C Auto (Bld)Ordered By: [facility] Twilamat Ribera on 11-22-2024 Immature granulocytes/100 WBC (Bld) 0.200 % 0.0-0.9 [facility] Comment on above: IG% - Immature Granu locytes (promyelocytes, myelocytes and metamyelocytes) > 1% indicates that a LEFT SHIFT is Present. LDL calc ser/plasOrdered By: [facility] on 11-22-2024 Cholesterol in LDL [Mass/Vol] 109 mg/dL [facility] Comment on above: Foxkcbkbze=387-759 m g/dL & Higher Imsb=099 mg/dL or greater Laboratory - Chemistry and C hemistry - challengeOrdered By: [facility] Twila Ribera on 11-22-2024 AST [Catalytic activity/Vol] 27 U/L <32 [facility] MCV (mean corpuscular volume ) determinationOrdered By: [facility] Twila Ribera on 11-22-2024 MCV (RBC) [Entitic vol] 84.9 fL 81-99 [facility] Mean corpuscular hemoglobin (MCH) determinationOrdered By: [facility] Twila Ribera on 11-22-2024 MCH (RBC) [Entitic mass] 28.2 pg 27.0-32.0 [facility] Mean corpuscular hemoglobin concentration (MCHC) determinationOrdered By: [facility] Twila Ribera on 11-22-2024 MCHC (RBC) [Mass/Vol] 33.3 g/dL 32-36 [facility] Mean platelet volume determi nationOrdered By: [facility] Twila Ribera on 11-22-2024 Platelet mean volume (Bld) [Entitic vol] 10.5 fL 6.2-12.0 [facility] Monocyte percentageOrdered B y: [facility] Twila Ribera on 11-22-2024 Monocytes/100 WBC (Bld) 8.6 % 0-10 [facility] Neutrophil percentageOrdered By: [facility] Twila Ribera on 11-22-2024 Neutrophils/100 WBC (Bld) 60.1 % 47-70 [facility] Nucleated red blood cell per centageOrdered By: [facility] Twila Ribera on 11-22-2024 Nucleated RBC/100 WBC (Bld) [Ratio] 0 % 0-5 [facility] Platelet countOrdered By: [facility] Twila Ribera on 11-22-2024 Platelets (Bld) [#/Vol] 246 10*3/uL 150-450 [facility] Potassium measurement (mass/ volume)Ordered By: [facility] Twila Ribera on 11-22-2024 Potassium (Unsp spec) [Mass/Vol] 4.5 mmol/L 3.3-5.1 [facility] RBC Auto (Bld) [#/Vol]Ordere d By: [facility] Twila Ribera on 11-22-2024 RBC (Bld) [#/Vol] 4.85 10*6/uL 4.2-5.4 [facility] Screening total cholesterol/ high density lipoprotein (HDL) cholesterol ratioOrdered By: [facility] Twila Ribera on 11-22-2024 Cholesterol.total/Cholest peyton in HDL [Mass ratio] 3.56 {ratio} [facility] Serum creatinine measurement (mass/volume)Ordered By: [facility] Twila Ribera on 11-22-2024 Creatinine [Mass/Vol] 0.93 mg/dL 0.70-1.20 [facility] Serum globulin measurementOr dered By: [facility] Twila Ribera on 11-22-2024 Globulin (S) [Mass/Vol] 2.9 g/dL 2.2-4.2 [facility] Serum glucose measurement (m ass/volume)Ordered By: [facility] Twila Ribera on 11-22-2024 Glucose [Mass/Vol] 76 mg/dL 70-99 [facility] Serum or plasma alanine coon otransferase (ALT) measurementOrdered By: [facility] Twila Ribera on 11-22-2024 ALT [Catalytic activity/Vol] 18 U/L <35 [facility] Serum or plasma albumin bharath urement (mass/volume)Ordered By: [facility] Twila Ribera on 11-22-2024 Albumin [Mass/Vol] 4.4 g/dL 3.4-4.8 [facility] Serum or plasma albumin/glob ulin mass ratioOrdered By: [facility] Twila Ribera on 11-22-2024 Albumin/Globulin [Mass ratio] 1.5 {ratio} 0.9-2.4 [facility] Serum or plasma alkaline ana sphatase measurementOrdered By: [facility] Twila Ribera on 11-22-2024 ALP [Catalytic activity/Vol] 64 U/L 35-104 [facility] Serum or plasma calcium bharath urement (mass/volume)Ordered By: [facility] Twila Ribera on 11-22-2024 Calcium [Mass/Vol] 10.0 mg/dL 7.6-11.0 [facility] Serum or plasma cholesterol in HDL measurement (mass/volume)Ordered By: [facility] Twila Ribera on 11-22-2024 Cholesterol in HDL [Mass/Vol] 57 mg/dL >40 [facility] Comment on above: National Cholesterol Education Program (NCEP) guidelines:<40 mg/dL: Low HDL-cholesterol (major risk factor for CHD)>= 60 mg/dL: High HDL-cholesterol (negative risk factor for CHD)HDL-cholesterol is affected by a number of factors, e.g. smoking, exercise, hormones, sex and age. Serum or plasma cholesterol measurement (mass/volume)Ordered By: [facility] Twila Ribera on 11-22-2024 Cholesterol [Mass/Vol] 201 mg/dL <201 [facility] Comment on above: Cholesterol level, D esirable <200 mg/dLBorderline high cholesterol 200-239 mg/dLHigh cholesterol >=240 mg/dLRecommendations of the NCEP Adult Treatment Panel for the following risk-cutoff thresholds for the [place] population. Serum or plasma urea nitroge n measurement (mass/volume)Ordered By: [facility] Twila Ribera on 11-22-2024 Urea nitrogen [Mass/Vol] 15 mg/dL 4-19 [facility] Sodium levelOrdered By: [facility] Twila Ribera on 11-22-2024 Sodium [Moles/Vol] 140 mmol/L 133-145 [facility] TSH DL <= 0.005 mIU/L QnOrde red By: [facility] Twila Ribera on 11-22-2024 TSH Qn 2.510 uIU/mL 0.300-4.200 [facility] Total proteinOrdered By: [facility] Twila Ribera on 11-22-2024 Protein [Mass/Vol] 7.4 g/dL 5.9-8.4 [facility] Triglycerides measurementOrd ered By: [facility] Twila Ribera on 11-22-2024 Triglyceride [Mass/Vol] 177 mg/dL <199 [facility] Comment on above: The drugs N-Acetylcy steine and Metamizole may falsely depress this assay. Normal range: <150 mg/dLBorderline High: 150-199 mg/dLHigh: 200-499 mg/dLVery High: >500 mg/dL White blood cell (WBC) count Ordered By: [facility] Twila Ribera on 11-22-2024 WBC (Bld) [#/Vol] 5.8 10*3/uL 4.4-11.0 [facility] Absolute lymphocyte countOrd ered By: [facility] on 12-28-2022 Lymphocytes Auto (Unsp spec) [#/Vol] 1.82 10*3/uL 0.83-4.51 [facility] Basophil percentageOrdered B y: [facility] on 12-28-2022 Basophils/100 WBC (Bld) 1.0 % 0-1 [facility] Bilirubin [Mass/Vol] 0.40 mg/dL 0.20-1.00 [facility] Comment on above: For patients on eltr ombopag therapy, use of Dimension [place] TBIL is not recommended. Chloride [Moles/Vol] 110 mmol/L 98-107 [facility] Cholesterol [Mass/Vol] 205 mg/dL <200 [facility] Comment on above: <200 mg/dL Desirable 200-240 mg/dL Borderline >240 mg/dL High Risk Eosinophils/100 WBC (Bld) 1.5 % 0-5 [facility] Glucose [Mass/Vol] 92 mg/dL 74-106 [facility] Neutrophils (Bld) [#/Vol] 3.4 10*3/uL 2.0-7.7 [facility] Neutrophils/100 WBC (Bld) 58.6 % 47-70 [facility] Potassium [Moles/Vol] 4.4 mmol/L 3.5-5.1 [facility] Protein [Mass/Vol] 7.8 g/dL 6.4-8.2 [facility] Sodium [Moles/Vol] 141 mmol/L 136-145 [facility] Triglyceride [Mass/Vol] 251 mg/dL <199 [facility] Comment on above: The drugs N-Acetylcy steine and Metamizole may falsely depress this assay.Serum Triglycerides Reference Interval Normal <150 mg/dL Borderline high 150 - 199 mg/dL High 200 - 499 mg/dL Very High > or = 500 mg/dL WBC (Bld) [#/Vol] 5.8 10*3/uL 4.4-11.0 [facility] Blood erythrocytes count (nu mber/volume)Ordered By: [facility] on 12-28-2022 RBC (Bld) [#/Vol] 5.42 10*6/uL 4.2-5.4 [facility] Blood hemoglobin measurement (mass/volume)Ordered By: [facility] on 12-28-2022 Hemoglobin (Bld) [Mass/Vol] 14.8 g/dL 12.0-15.0 [facility] Blood lymphocytes/100 leukoc ytesOrdered By: [facility] on 12-28-2022 Lymphocytes/100 WBC (Bld) 31.3 % 19-41 [facility] Blood monocytes/100 leukocyt esOrdered By: [facility] on 12-28-2022 Monocytes/100 WBC (Bld) 7.4 % 0-10 [facility] Blood platelet mean volumeOr dered By: [facility] on 12-28-2022 Platelet mean volume (Bld) [Entitic vol] 10.7 fL 6.2-12.0 [facility] Determination of erythrocyte mean corpuscular volume (MCV)Ordered By: [facility] on 12-28-2022 MCV (RBC) [Entitic vol] 86.2 fL 81-99 [facility] Hematocrit Auto (Bld) [Volum e fraction]Ordered By: [facility] on 12-28-2022 Hematocrit (Bld) [Volume fraction] 46.7 % 37-47 [facility] Laboratory - Chemistry and C hemistry - challengeOrdered By: [facility] on 12-28-2022 ALP [Catalytic activity/Vol] 89 U/L 45-117 [facility] ALT [Catalytic activity/Vol] 28 U/L 13-56 [facility] CO2 [Moles/Vol] 26.0 mmol/L 21.0-32.0 [facility] Globulin (S) [Mass/Vol] 3.9 g/dL 2.2-4.2 [facility] Urea nitrogen/Creatinine [Mass ratio] 11.4 mg/mg 10-20 [facility] Laboratory - Hematology and Cell countsOrdered By: [facility] on 12-28-2022 Erythrocyte distribution width (RBC) [Entitic vol] 43.1 fL 35.1-43.9 [facility] Erythrocyte distribution width (RBC) [Ratio] 13.5 % 11.6-14.6 [facility] Immature granulocytes/100 WBC (Bld) 0.200 % 0.0-0.9 [facility] Comment on above: IG% - Immature Granu locytes (promyelocytes, myelocytes and metamyelocytes) > 1% indicates that a LEFT SHIFT is Present. MCH (RBC) [Entitic mass] 27.3 pg 27.0-32.0 [facility] Nucleated RBC/100 WBC (Bld) [Ratio] 0 % 0-5 [facility] MCHC Auto (RBC) [Mass/Vol]Or dered By: BENJAMÍN [facility]OUNT [facility] on 12-28-2022 MCHC (RBC) [Mass/Vol] 31.7 g/dL 32-36 [facility] No Panel InformationOrdered By: BENJAMÍN [facility]OUNT [facility] on 12-28-2022 Estimated GFR (MDRD) Amer 67 mL/min >60 [facility] Comment on above: GFR Calc Estimated GFR (MDRD) Non-Af Amer 55 mL/min >60 [facility] Comment on above: Non- GFR Calc Thyroid Stimulating Hormone (TSH) 2.50 uIU/mL 0.358-3.74 [facility] Vitamin D 25-Hydroxy 80.5 ng/mL [facility] Comment on above: Vitamin D 25(OH) Sta tus Range Deficiency <20 ng/mL (50nmol/L) Insufficiency 20 - 30 ng/mL (50 - 75 nmol/L) Sufficiency 30 - 100 ng/mL (75 - 250 nmol/L) Toxicity >100 ng/mL (>250 nmol/L) Platelets bldOrdered By: DOUGLAS LY on 12-28-2022 Platelets (Bld) [#/Vol] 254 10*3/uL 150-450 [facility] Serum or plasma albumin bharath urement (mass/volume)Ordered By: BENJAMÍN [facility] on 12-28-2022 Albumin [Mass/Vol] 3.9 g/dL 3.2-5.0 [facility] Serum or plasma albumin/glob ulin mass ratioOrdered By: BENJAMÍN MOUNT [facility] on 12-28-2022 Albumin/Globulin [Mass ratio] 1.0 {ratio} 0.9-2.4 [facility] Serum or plasma calcium bharath urement (mass/volume)Ordered By: BENJAMÍN [facility] on 12-28-2022 Calcium [Mass/Vol] 9.6 mg/dL 8.5-10.1 [facility] Serum or plasma cholesterol in HDL measurement (mass/volume)Ordered By: [facility] on 12-28-2022 Cholesterol in HDL [Mass/Vol] 51 mg/dL >40 [facility] Comment on above: The drugs N-Acetylcy steine and Metamizole may falsely depress this assay. Reference Range HDL <40 mg/dL Low HDL Cholesterol HDL >or= 60 mg/dL High HDL Cholesterol Serum or plasma cholesterol in VLDL measurement (mass/volume)Ordered By: [facility] on 12-28-2022 Cholesterol in VLDL [Mass/Vol] 50 mg/dL 5-40 [facility] Serum or plasma creatinine m easurement (mass/volume)Ordered By: [facility] on 12-28-2022 Creatinine [Mass/Vol] 1.05 mg/dL 0.55-1.02 [facility] Comment on above: The validity of the calculated GFR & GFRAA in patients over 70 years has not been determined. Clinical correlation is essential. Serum or plasma low density lipoprotein (LDL) cholesterol measurement (mass/volume)Ordered By: [facility] on 12-28-2022 Cholesterol in LDL [Mass/Vol] 104 mg/dL 0-130 [facility] Serum or plasma urea nitroge n measurement (mass/volume)Ordered By: [facility] on 12-28-2022 Urea nitrogen [Mass/Vol] 12 mg/dL 7-18 [facility] Thin prep Papanicolaou smear with manual screeningOrdered By: [facility] on 12-28-2022 Thin prep Papanicolaou smear with manual screening 27 U/L 15-37 [facility] Thin prep Papanicolaou smear with manual screening 5 5-15 [facility] Whole blood hemoglobin A1c/t otal hemoglobin ratio (mass fraction)Ordered By: [facility] on 12-28-2022 HbA1c (Bld) [Mass fraction] 5.6 % 3.8-5.6 [facility] Comment on above: Normal < 5.7 % Predi abetic 5.7 - 6.4 % Diabetic >or= 6.5 % Please note range changes. Absolute lymphocyte countOrd ered By: Dr. Nguyễn on 08-08-2022 Lymphocytes Auto (Unsp spec) [#/Vol] 1.92 10*3/uL 0.83-4.51 [facility] Basophil percentageOrdered B y: Dr. Nguyễn on 08-08-2022 Basophils/100 WBC (Bld) 0.2 % 0-1 [facility] Chloride [Moles/Vol] 104 mmol/L 98-107 [facility] Eosinophils/100 WBC (Bld) 0.1 % 0-5 [facility] Glucose [Mass/Vol] 148 mg/dL 74-106 [facility] Comment on above: Fasting Glucose resu lt greater than or equal to 126 mg/dL suggests DIABETES MELLITUS per A.D.A. criteria. Neutrophils (Bld) [#/Vol] 11.3 10*3/uL 2.0-7.7 [facility] Neutrophils/100 WBC (Bld) 80.0 % 47-70 [facility] Potassium [Moles/Vol] 3.9 mmol/L 3.5-5.1 [facility] Sodium [Moles/Vol] 141 mmol/L 136-145 [facility] WBC (Bld) [#/Vol] 14.1 10*3/uL 4.4-11.0 [facility] Blood erythrocytes count (nu mber/volume)Ordered By: Dr. Nguyễn on 08-08-2022 RBC (Bld) [#/Vol] 4.79 10*6/uL 4.2-5.4 [facility] Blood hemoglobin measurement (mass/volume)Ordered By: Dr. Nguyễn on 08-08-2022 Hemoglobin (Bld) [Mass/Vol] 13.2 g/dL 12.0-15.0 [facility] Blood lymphocytes/100 leukoc ytesOrdered By: Dr. Nguyễn on 08-08-2022 Lymphocytes/100 WBC (Bld) 13.6 % 19-41 [facility] Blood monocytes/100 leukocyt esOrdered By: Dr. Nguyễn on 08-08-2022 Monocytes/100 WBC (Bld) 5.7 % 0-10 [facility] Blood platelet mean volumeOr dered By: Dr. Nguyễn on 08-08-2022 Platelet mean volume (Bld) [Entitic vol] 10.2 fL 6.2-12.0 [facility] Determination of erythrocyte mean corpuscular volume (MCV)Ordered By: Dr. Nguyễn on 08-08-2022 MCV (RBC) [Entitic vol] 87.9 fL 81-99 [facility] Hematocrit Auto (Bld) [Volum e fraction]Ordered By: Dr. Nguyễn on 08-08-2022 Hematocrit (Bld) [Volume fraction] 42.1 % 37-47 [facility] Laboratory - Chemistry and C hemistry - challengeOrdered By: Dr. Nguyễn on 08-08-2022 CO2 [Moles/Vol] 29.0 mmol/L 21.0-32.0 [facility] Urea nitrogen/Creatinine [Mass ratio] 10.4 mg/mg 10-20 [facility] Laboratory - Hematology and Cell countsOrdered By: Dr. Nguyễn on 08-08-2022 Erythrocyte distribution width (RBC) [Entitic vol] 43.8 fL 35.1-43.9 [facility] Erythrocyte distribution width (RBC) [Ratio] 13.6 % 11.6-14.6 [facility] Immature granulocytes/100 WBC (Bld) 0.400 % 0.0-0.9 [facility] Comment on above: IG% - Immature Granu locytes (promyelocytes, myelocytes and metamyelocytes) > 1% indicates that a LEFT SHIFT is Present. MCH (RBC) [Entitic mass] 27.6 pg 27.0-32.0 [facility] Nucleated RBC/100 WBC (Bld) [Ratio] 0 % 0-5 [facility] MCHC Auto (RBC) [Mass/Vol]Or dered By: Dr. Nguyễn on 08-08-2022 MCHC (RBC) [Mass/Vol] 31.4 g/dL 32-36 [facility] No Panel InformationOrdered By: Dr. Nguyễn on 08-08-2022 Estimated Creatinine Clearance Calc 41.74 ml/min [facility] Estimated GFR (MDRD) Amer 74 mL/min >60 [facility] Comment on above: GFR Calc Estimated GFR (MDRD) Non-Af Amer 61 mL/min >60 [facility] Comment on above: Non- GFR Calc Platelets bldOrdered By: Dr. Nguyễn on 08-08-2022 Platelets (Bld) [#/Vol] 252 10*3/uL 150-450 [facility] Serum or plasma calcium bharath urement (mass/volume)Ordered By: Dr. Nguyễn on 08-08-2022 Calcium [Mass/Vol] 9.0 mg/dL 8.5-10.1 [facility] Serum or plasma creatinine m easurement (mass/volume)Ordered By: Dr. Nguyễn on 08-08-2022 Creatinine [Mass/Vol] 0.96 mg/dL 0.55-1.02 [facility] Comment on above: The validity of the calculated GFR & GFRAA in patients over 70 years has not been determined. Clinical correlation is essential. Serum or plasma urea nitroge n measurement (mass/volume)Ordered By: Dr. Nguyễn on 08-08-2022 Urea nitrogen [Mass/Vol] 10 mg/dL 7-18 [facility] Thin prep Papanicolaou smear with manual screeningOrdered By: Dr. Nguyễn on 08-08-2022 Thin prep Papanicolaou smear with manual screening 8 5-15 [facility] Glucose Glucometer (BldC) [M ass/Vol]Ordered By: Dr. Nguyễn on 08-07-2022 Glucose [Mass/Vol] 100 mg/dL 74-106 [facility] Comment on above: MANAGEMENT OF PATIEN T CARE PER NURSING PROTOCOL Laboratory - Chemistry and C hemistry - challengeOrdered By: Dr. Vila on 08-06-2022 Magnesium [Mass/Vol] 2.3 mg/dL 1.6-2.6 [facility] No Panel Informationon 01-22 Miscellaneous Test Comment MAILED SPECIMEN [facility] Work Phone: Basophil percentageon 2021 Cholesterol [Mass/Vol] 200 mg/dL <200 [facility] Work Phone: Comment on above: <200 mg/dL Desirable 200-240 mg/dL Borderline >240 mg/dL High Risk Triglyceride [Mass/Vol] 205 mg/dL <199 [facility] Work Phone: Comment on above: The drugs N-Acetylcy steine and Metamizole may falsely depress this assay.Serum Triglycerides Reference Interval Normal <150 mg/dL Borderline high 150 - 199 mg/dL High 200 - 499 mg/dL Very High > or = 500 mg/dL Laboratory - Chemistry and C hemistry - challengeon 11-03-2021 ALT [Catalytic activity/Vol] 32 U/L 13-56 [facility] Work Phone: Serum or plasma cholesterol in HDL measurement (mass/volume)on 11-03-2021 Cholesterol in HDL [Mass/Vol] 51 mg/dL >40 [facility] Work Phone: Comment on above: The drugs N-Acetylcy steine and Metamizole may falsely depress this assay. Reference Range HDL <40 mg/dL Low HDL Cholesterol HDL >or= 60 mg/dL High HDL Cholesterol Serum or plasma cholesterol in VLDL measurement (mass/volume)on 11-03-2021 Cholesterol in VLDL [Mass/Vol] 41 mg/dL 5-40 [facility] Work Phone: Serum or plasma low density lipoprotein (LDL) cholesterol measurement (mass/volume)on 11-03-2021 Cholesterol in LDL [Mass/Vol] 108 mg/dL 0-130 [facility] Work Phone: Thin prep Papanicolaou smear with manual screeningon 11-03-2021 Thin prep Papanicolaou smear with manual screening 22 U/L 15-37 [facility] Work Phone: Culture, urineon 10-29-2021 Bacteria identified Cx Nom (U) Positive [facility] Work Phone: Laboratory - Chemistry and C hemistry - challengeon 10-29-2021 Bilirubin Ql (U) Negative [facility] Work Phone: Glucose Ql (U) Negative [facility] Work Phone: Ketones Ql (U) Negative [facility] Work Phone: pH (U) 5.0 [pH] [facility] Work Phone: Specific gravity (U) [Rel density] 1.005 [facility] Work Phone: Urobilinogen (U) [Mass/Vol] Negative [facility] Work Phone: Laboratory - Hematology and Cell countson 10-29-2021 Hemoglobin Ql (U) Moderate [facility] Work Phone: Laboratory - Specimen inform ationon 10-29-2021 Clarity (U) Clear [facility] Work Phone: Color (U) YELLOW [facility] Work Phone: Laboratory - Urinalysison Nitrite Ql (U) Negative [facility] Work Phone: Protein Ql (U) Negative [facility] Work Phone: No Panel Informationon 10-29 Urine Leukocytes Positive [facility] Work Phone: Urine Non-Hemolyzed Blood Moderate [facility] Work Phone: No Panel Informationon 08-19 Reporting Documentation Negative [facility] Work Phone: Absolute lymphocyte counton 07-30-2021 Lymphocytes Auto (Unsp spec) [#/Vol] 1.70 10*3/uL 0.83-4.51 [facility] Work Phone: Basophil percentageon 2021 Basophils/100 WBC (Bld) 0.8 % 0-1 [facility] Work Phone: Bilirubin [Mass/Vol] 0.40 mg/dL 0.20-1.00 [facility] Work Phone: Comment on above: For patients on eltr ombopag therapy, use of Dimension [place] TBIL is not recommended. Chloride [Moles/Vol] 109 mmol/L 98-107 [facility] Work Phone: Cholesterol [Mass/Vol] 202 mg/dL <200 [facility] Work Phone: Comment on above: <200 mg/dL Desirable 200-240 mg/dL Borderline >240 mg/dL High Risk Eosinophils/100 WBC (Bld) 1.7 % 0-5 [facility] Work Phone: [phone] Glucose [Mass/Vol] 94 mg/dL 74-106 [facility] Work Phone: [phone] Neutrophils (Bld) [#/Vol] 3.6 10*3/uL 2.0-7.7 [facility] Work Phone: [phone] Neutrophils/100 WBC (Bld) 60.6 % 47-70 [facility] Work Phone: [phone] Potassium [Moles/Vol] 4.4 mmol/L 3.5-5.1 [facility] Work Phone: [phone] Protein [Mass/Vol] 7.7 g/dL 6.4-8.2 [facility] Work Phone: [phone] Sodium [Moles/Vol] 139 mmol/L 136-145 [facility] Work Phone: Triglyceride [Mass/Vol] 223 mg/dL [facility] Work Phone: [phone] Comment on above: The drugs N-Acetylcy steine and Metamizole may falsely depress this assay.Serum Triglycerides Reference Interval Normal <150 mg/dL Borderline high 150 - 199 mg/dL High 200 - 499 mg/dL Very High > or = 500 mg/dL WBC (Bld) [#/Vol] 5.9 10*3/uL 4.4-11.0 [facility] Work Phone: Blood erythrocytes count (nu mber/volume)on 07-30-2021 RBC (Bld) [#/Vol] 5.11 10*6/uL 4.2-5.4 [facility] Work Phone: Blood hemoglobin measurement (mass/volume)on 07-30-2021 Hemoglobin (Bld) [Mass/Vol] 14.5 g/dL 12.0-15.0 [facility] Work Phone: Blood lymphocytes/100 leukoc yteson 07-30-2021 Lymphocytes/100 WBC (Bld) 28.9 % 19-41 [facility] Work Phone: [phone] Blood monocytes/100 leukocyt eson 07-30-2021 Monocytes/100 WBC (Bld) 7.5 % 0-10 [facility] Work Phone: Blood platelet mean volumeon 07-30-2021 Platelet mean volume (Bld) [Entitic vol] 10.5 fL 6.2-12.0 [facility] Work Phone: Determination of erythrocyte mean corpuscular volume (MCV)on 07-30-2021 MCV (RBC) [Entitic vol] 86.1 fL 81-99 [facility] Work Phone: Hematocrit Auto (Bld) [Volum e fraction]on 07-30-2021 Hematocrit (Bld) [Volume fraction] 44.0 % 37-47 [facility] Work Phone: Laboratory - Chemistry and C hemistry - challengeon 07-30-2021 ALP [Catalytic activity/Vol] 87 U/L 45-117 [facility] Work Phone: ALT [Catalytic activity/Vol] 29 U/L 13-56 [facility] Work Phone: CO2 [Moles/Vol] 26.0 mmol/L 21.0-32.0 [facility] Work Phone: Globulin (S) [Mass/Vol] 4.0 g/dL 2.2-4.2 [facility] Work Phone: Urea nitrogen/Creatinine [Mass ratio] 17.5 mg/mg 10-20 [facility] Work Phone: Laboratory - Hematology and Cell countson 07-30-2021 Erythrocyte distribution width (RBC) [Entitic vol] 41.1 fL 35.1-43.9 [facility] Work Phone: Erythrocyte distribution width (RBC) [Ratio] 13.2 % 11.6-14.6 [facility] Work Phone: Immature granulocytes/100 WBC (Bld) 0.500 % 0.0-0.9 [facility] Work Phone: Comment on above: IG% - Immature Granu locytes (promyelocytes, myelocytes and metamyelocytes) > 1% indicates that a LEFT SHIFT is Present. MCH (RBC) [Entitic mass] 28.4 pg 27.0-32.0 [facility] Work Phone: Nucleated RBC/100 WBC (Bld) [Ratio] 0 % 0-5 [facility] Work Phone: MCHC Auto (RBC) [Mass/Vol]on 07-30-2021 MCHC (RBC) [Mass/Vol] 33.0 g/dL 32-36 [facility] Work Phone: No Panel Informationon 07-30 Estimated GFR (MDRD) Amer 85 mL/min >60 [facility] Work Phone: Comment on above: GFR Calc Estimated GFR (MDRD) Non-Af Amer 70 mL/min >60 [facility] Work Phone: Comment on above: Non- GFR Calc Thyroid Stimulating Hormone (TSH) 1.61 uIU/mL 0.358-3.74 [facility] Work Phone: Platelets bldon 07-30-2021 Platelets (Bld) [#/Vol] 247 10*3/uL 150-450 [facility] Work Phone: Serum or plasma albumin bharath urement (mass/volume)on 07-30-2021 Albumin [Mass/Vol] 3.7 g/dL 3.2-5.0 [facility] Work Phone: Serum or plasma albumin/glob ulin mass ratioon 07-30-2021 Albumin/Globulin [Mass ratio] 0.9 {ratio} 0.9-2.4 [facility] Work Phone: Serum or plasma calcium bharath urement (mass/volume)on 07-30-2021 Calcium [Mass/Vol] 9.5 mg/dL 8.5-10.1 [facility] Work Phone: Serum or plasma cholesterol in HDL measurement (mass/volume)on 07-30-2021 Cholesterol in HDL [Mass/Vol] 49 mg/dL [facility] Work Phone: Comment on above: The drugs N-Acetylcy steine and Metamizole may falsely depress this assay. Reference Range HDL <40 mg/dL Low HDL Cholesterol HDL >or= 60 mg/dL High HDL Cholesterol Serum or plasma cholesterol in VLDL measurement (mass/volume)on 07-30-2021 Cholesterol in VLDL [Mass/Vol] 45 mg/dL 5-40 [facility] Work Phone: Serum or plasma creatinine m easurement (mass/volume)on 07-30-2021 Creatinine [Mass/Vol] 0.86 mg/dL 0.55-1.02 [facility] Work Phone: Comment on above: The validity of the calculated GFR & GFRAA in patients over 70 years has not been determined. Clinical correlation is essential. Serum or plasma low density lipoprotein (LDL) cholesterol measurement (mass/volume)on 07-30-2021 Cholesterol in LDL [Mass/Vol] 108 mg/dL 0-130 [facility] Work Phone: Serum or plasma urea nitroge n measurement (mass/volume)on 07-30-2021 Urea nitrogen [Mass/Vol] 15 mg/dL 7-18 [facility] Work Phone: Thin prep Papanicolaou smear with manual screeningon 07-30-2021 Thin prep Papanicolaou smear with manual screening 20 U/L 15-37 [facility] Work Phone: Thin prep Papanicolaou smear with manual screening 4 5-15 [facility] Work Phone: Whole blood hemoglobin A1c/t otal hemoglobin ratio (mass fraction)on 07-30-2021 HbA1c (Bld) [Mass fraction] 5.4 % 3.8-5.6 [facility] Work Phone: Comment on above: Normal < 5.7 % Predi abetic 5.7 - 6.4 % Diabetic >or= 6.5 % Please note range changes. Culture, urine Bacteria identified Cx Nom (U) Positive [facility] Work Phone: Vital Signs Date Time Vital Sign Value Performing Clinician Kwan kelley 08-08-2022 15:07-0500 Body temperature 98 [degF] [facility] Work Phone: [phone] [place] [address] 08-08-2022 15:07-0500 Diastolic blood pressure 69 mm[Hg] [facility] Work Phone: [phone] [place] [address] 08-08-2022 15:07-0500 Heart rate 70 /min [facility] Work Phone: 8(057)069-017815 [place] [address] 08-08-2022 15:07-0500 Respiratory rate 18 /min [facility] Work Phone: [phone](642)[phone] [place] [address] 08-08-2022 15:07-0500 SaO2% (BldA) [Mass fraction] 96 % [facility] Work Phone: 3(681)[phone] [place] [address] 08-08-2022 15:07-0500 Systolic blood pressure 116 mm[Hg] [facility] Work Phone: [phone])724-810015 [place] [address] 08-08-2022 07:43-0500 Inhaled oxygen flow rate 2 L/min [facility] Work Phone: 5(149)416-976815 [place] [address] 08-07-2022 15:17-0500 Body height 154.99 cm [facility] Work Phone: [phone])662-842815 [place] [address] 08-07-2022 15:17-0500 Body mass index (BMI) [Ratio] 29.1 kg/m2 [facility] Work Phone: [phone](704)[phone] [place] [address] 08-07-2022 15:17-0500 Body weight 70 kg [facility] Work Phone: 6(319)659-282715 [place] [address] 07-27-2022 13:57-0500 Body mass index (BMI) [Ratio] 29.6 kg/m2 [facility] Work Phone: 6(222)026-505415 [place] [address] 01-23-2023 13:57-0500 Body weight 71.21 kg [facility] Work Phone: [phone])299-66[address] 07-27-2022 13:57-0500 Diastolic blood pressure 82 mm[Hg] [facility] Work Phone: 3(163)632-107015 [place] [address] 07-27-2022 13:57-0500 Systolic blood pressure 132 mm[Hg] [facility] Work Phone: 3(818)[phone] [place] [address] 06-03-2022 11:07-0500 Body mass index (BMI) [Ratio] 29.6 kg/m2 [facility] Work Phone: 4([phone])098-384600 [address] 06-03-2022 11:07-0500 Body weight 71.21 kg [facility] Work Phone: 1(234)342-222215 [place] [address] 06-03-2022 11:07-0500 Diastolic blood pressure 82 mm[Hg] [facility] Work Phone: 8(089)666-652115 [place] [address] 06-03-2022 11:07-0500 Systolic blood pressure 134 mm[Hg] [facility] Work Phone: 3([phone])521-274100 [address] 01-22-2022 11:10-0400 Body height 154.94 cm [facility] Work Phone: [facility] Work Phone: 01-22-2022 11:08-0400 Body mass index (BMI) [Ratio] 28.8 kg/m2 [facility] Work Phone: [facility] Work Phone: 01-22-2022 11:08-0400 Body weight 70.3 kg [facility] Work Phone: [facility] Work Phone: 01-22-2022 11:08-0400 Diastolic blood pressure 76 mm[Hg] [facility] Work Phone: [facility] Work Phone: 01-22-2022 11:08-0400 Systolic blood pressure 112 mm[Hg] [facility] Work Phone: [facility] Work Phone: 12-25-2021 13:47-0400 Body mass index (BMI) [Ratio] 29.8 kg/m2 [facility] Work Phone: [facility] Work Phone: 12-25-2021 13:47-0400 Body weight 71.72 kg [facility] Work Phone: [facility] Work Phone: 12-25-2021 13:47-0400 Diastolic blood pressure 72 mm[Hg] [facility] Work Phone: [facility] Work Phone: 12-25-2021 13:47-0400 Systolic blood pressure 116 mm[Hg] [facility] Work Phone: [facility] Work Phone: 11-19-2021 13:50-0400 Body mass index (BMI) [Ratio] 30.4 kg/m2 [facility] Work Phone: [facility] Work Phone: 11-19-2021 13:50-0400 Body weight 73.02 kg [facility] Work Phone: [facility] Work Phone: 11-19-2021 13:50-0400 Diastolic blood pressure 70 mm[Hg] [facility] Work Phone: [facility] Work Phone: 11-19-2021 13:50-0400 Systolic blood pressure 136 mm[Hg] [facility] Work Phone: [facility] Work Phone: 10-29-2021 11:19-0400 Body mass index (BMI) [Ratio] 30.2 kg/m2 [facility] Work Phone: [facility] Work Phone: 10-29-2021 11:19-0400 Body weight 72.57 kg [facility] Work Phone: [facility] Work Phone: 10-29-2021 11:19-0400 Diastolic blood pressure 80 mm[Hg] [facility] Work Phone: [facility] Work Phone: 10-29-2021 11:19-0400 Systolic blood pressure 128 mm[Hg] [facility] Work Phone: [facility] Work Phone: 10-29-2021 11:19-0400 Body height 154.94 cm [facility] Work Phone: [facility] Work Phone: 10-29-2021 11:19-0400 Body mass index (BMI) [Ratio] 30.2 kg/m2 [facility] Work Phone: [facility] Work Phone: 10-29-2021 11:19-0400 Body weight 72.57 kg [facility] Work Phone: [facility] Work Phone: 10-29-2021 11:19-0400 Diastolic blood pressure 80 mm[Hg] [facility] Work Phone: [facility] Work Phone: 10-29-2021 11:19-0400 Systolic blood pressure 128 mm[Hg] [facility] Work Phone: [facility] Work Phone: 10-22-2021 11:52-0400 Body mass index (BMI) [Ratio] 29.8 kg/m2 [facility] Work Phone: [facility] Work Phone: 10-22-2021 11:52-0400 Body weight 71.66 kg [facility] Work Phone: [facility] Work Phone: 10-22-2021 11:52-0400 Diastolic blood pressure 80 mm[Hg] [facility] Work Phone: [facility] Work Phone: 10-22-2021 11:52-0400 Systolic blood pressure 136 mm[Hg] [facility] Work Phone: [facility] Work Phone: 10-22-2021 11:52-0400 Body mass index (BMI) [Ratio] 29.8 kg/m2 [facility] Work Phone: [facility] Work Phone: 10-22-2021 11:52-0400 Body weight 71.66 kg [facility] Work Phone: [facility] Work Phone: 10-22-2021 11:52-0400 Diastolic blood pressure 80 mm[Hg] [facility] Work Phone: [facility] Work Phone: 10-22-2021 11:52-0400 Systolic blood pressure 136 mm[Hg] [facility] Work Phone: [facility] Work Phone: Encounters Encounter Date Encounter Type Care Provider Facility Start: 05-15-2025 ambulatory Twila Ribera [facility] Fa cility:[facility] Start: 11-26-2024 ambulatory Twila Ribera [facility] Fa cility:[facility] Start: 11-23-2024 End: 11-23-2024 ambulatory Twila Ribera [facility] Work Phone: [facility] Work Phone: Start: 11-23-2024 End: 11-23-2024 Patient encounter procedure [facility] Twila Ribera [facility] Work Phone: Start: 11-22-2024 End: 11-23-2024 ambulatory Twila Ribera [facility] Work Phone: [facility] Work Phone: Start: 11-22-2024 End: 11-22-2024 Patient encounter procedure [facility] Twila Riebra [facility] -Laboratory Benjam[facility] Mckay Start: 11-22-2024 End: 11-22-2024 ambulatory Twila Ribera [facility] Facility:[facility] Start: 12-28-2022 End: 12-28-2022 ambulatory [facility] Work Phone: Start: 12-28-2022 End: 12-28-2022 Patient encounter procedure [facility]Laboratory Work Phone: Start: 11-24-2022 End: 11-24-2022 ambulatory [facility] Work Phone: Start: 11-24-2022 End: 11-24-2022 Patient encounter procedure [facility]Out[facility] Breast Imaging Work Phone: Start: 08-08-2022 Non-patient / Non-visit [facility] Work Phone: [facility] Start: 08-07-2022 Non-patient / Non-visit [facility] Work Phone: [facility] Start: 08-07-2022 End: 08-08-2022 Evaluation and [facility] Start: 08-07-2022 End: 08-08-2022 observation encounter [facility] Work Phone: [facility] Work Phone: Start: 08-06-2022 Non-patient / Non-visit [facility] Work Phone: [facility] Start: 07-27-2022 End: 07-27-2022 Patient encounter procedure [facility] Work Phone: [facility] Start: 06-03-2022 End: 06-03-2022 Patient encounter procedure [facility] Work Phone: [facility] Start: 02-10-2022 End: 02-10-2022 Patient encounter procedure [facility] Work Phone: [facility] Ultrasound Start: 01-22-2022 End: 01-22-2022 Patient encounter procedure [facility] Work Phone: [facility] Start: 12-25-2021 End: 12-25-2021 Patient encounter procedure [facility] Work Phone: [facility] Start: 11-19-2021 End: 11-19-2021 Patient encounter procedure [facility] Work Phone: [facility] Start: 11-07-2021 End: 11-07-2021 Patient encounter procedure [facility] Work Phone: [facility] Start: 11-03-2021 End: 11-03-2021 Patient encounter procedure [facility] Work Phone: [facility]Laboratory Start: 10-29-2021 End: 10-29-2021 Patient encounter procedure [facility] Start: 10-29-2021 End: 10-29-2021 Patient encounter procedure [facility] Work Phone: [facility] Start: 10-22-2021 End: 10-22-2021 Patient encounter procedure [facility] Work Phone: [facility] Start: 08-19-2021 Non-patient / Non-visit [facility] Work Phone: [facility] Start: 08-19-2021 End: 08-19-2021 Patient encounter procedure [facility] Work Phone: [facility] Start: 07-30-2021 End: 07-30-2021 Patient encounter procedure [facility] Work Phone: [facility]Laboratory Procedures Date Procedure Procedure Detail Performing Clinician Start: 11-23-2024 XR knee, 3 views Sabino LAGUNAS Work Phone: Start: 11-22-2024 Vitamin D, 25-hydrox y measurement Twila LAGUNAS Work Phone: Comment on above: Vitamin D StatusDefi ciency: <20 ng/mL (50nmol/L)Insufficiency: 20-30 ng/mL (50-75 nmol/L)Sufficiency: 30-100 ng/mL (75-250 nmol/L)Toxicity: >100 ng/mL (>250 nmol/L) Start: 11-24-2022 Screening mammography Start: 08-07-2022 Repair, Anterior & Posterior Sling Cysto (Bilateral) [facility] Work Phone: Start: 08-07-2022 Vaginal hysterectomy [facility] Work Phone: Start: 02-10-2022 Pelvic echography [facility] Work Phone: Start: 10-29-2021 Urine culture [facility] Work Phone: Start: 08-19-2021 Screening mammography [facility] Work Phone: Urine culture [facility] Work Phone: Plan of Treatment Date Care Activity Detail Author Start: 08-08-2022 Application of inter mittent pneumatic compression device [facility] Start: 08-08-2022 Patient discharge [facility] Start: 08-08-[address] [facility] Start: 08-07-2022 Following clinical p athway protocol [facility] Start: 08-07-2022 Catheterization of vein [facility] Start: 08-07-2022 Deep breathing and c oughing exercises [facility] Start: 08-07-2022 Oxygen therapy [facility] Start: 08-07-2022 Patient education [facility] Start: 08-07-2022 End: 08-07-2022 Provision of activity privileges [facility] Start: 08-07-2022 Taking patient vital signs [facility] Start: 08-07-2022 Vital signs measurements [facility] Start: 08-07-2022 End: 08-07-2022 [facility] Start: 08-07-2022 Admission procedure [facility] Start: 08-07-2022 Assessment of risk o f venous thromboembolism [facility] Start: 08-07-2022 End: 08-07-2022 Measuring intake and output [facility] Start: 12-25-2021 Patient referral [facility] Work Phone: Patient referral [facility] Work Phone: [facility] Work [facility] Work Phone: Payers Date Payer Category Payer Medicare [id number] 2024 Medicare [id number] 2024 Self-pay [id number] Medicare [id number] Unknown [id number] [facility] [id number] Unknown [id number] Unknown [id number] Unknown [id number] Unknown [id number] Social History Date Type Detail Facility Start: 10-29-2021 End: 08-20-2022 Tobacco smoking status NHIS Unknown if ever smoked [facility] Start: 06-06-2020 Non-smoker [facility] Start: 1950 Sex Assigned At Female W [facility] Start: 08-20-2022 Tobacco smoking stat us WYIS Ex-smoker (finding) [facility] Medical Equipment Procedure Code Equipment Code Equipment Origin al Text Equipment Identifier Dates SLING, ALTIS VAGINAL FDA Star t: 08-07-2022 SLING, ALTIS VAGINAL FDA Star t: 08-07-2022 SLING, ALTIS VAGINAL FDA Star t: 08-07-2022 SLING, ALTIS VAGINAL FDA Star t: 08-07-2022 Goals Date Patient Goal Desired Activity /State Functional Status Date Assessment Result Facility 08-08-2022 Functional status Ambulates [facility] Work Phone: Mental Status Date Assessment Result Facility 08-08-2022 Cognitive function Level Of Cons ciousness Awake;Alert;Appropriate;Follow s Commands;Responds to vocal stimuli [facility] Work Phone: 08-07-2022 Cognitive function Voice/Name [facility] Work Phone: Clinical Notes 08-07-2022 to 11-23-2024 Note Date & Type Note Facility 11-23-2024 Radiology Diagnostic study note [facility] Imaging Services [address] [place], [place] [id number] Knee 3 Views MR#: [id number] Acct: [id number] Name: BERNICE WEST Rep #: [id number] : 1950 F 74 From: Iar Choudhary MD PCP: Twila Ribera Colt, [facility]AIC[facility] Status: REG CLI Study:Knee 3 Views Date of Exam: 5 Exam# [id number] Ordering Dr: Twila Ribera [facility] PROCEDURE: KNEE 3 VIEWS 11/23/2024 REASON FOR EXAM: PAIN IN RIGHT KNEE TECHNIQUE: Three views of the right knee COMPARISON: None RAD/Knee 3 Views IMPRESSION: Mild diffuse soft tissue edema. No large joint effusion. No acute fracture or dislocation. Very minimal degenerative changes. Reading Location: [id number] CC: [facility] MOSAICIST-C Twila Ribera ~ Supervisor Train Operations: Signed [facility] 08-08-2022 Progress note Note Date/Time August 08, 2022 9:00am [facility] Medical Records Department [address] [place] [address] Progress Note - OBGYN 08/08/22 0854 MR#: [id number] Acct: [id number] Name: BERNICE WEST Rep #:[id number] : 1950 71 From: Mercedes reddy MD PCP: [facility] St atus:ADM PJ Location: MS3 [id number] Subjective Subjective Patient doing well without complaints. Tolerating PO. Ambulating without difficulty. Denies chest pain, shortness of breath, calf pain/swelling, fevers, chills, lightheadedness. Objective Data Objective Data Vital Signs: Vital Signs Temp Pulse Resp BP Pulse Ox O2 Del Method O2 Flow Rate 98.4 F 70 16 102/73 98 Room Air 2 08/08/22 08:04 08/08/22 08:04 08/08/22 08:04 08/08/22 08:04 08/08/22 08:04 08/08/22 08:04 08/08/22 07:43 Oxygen Flow Rate (L/min) 2 Oxygen Delivery Method Room Air Weight: 154 lb 5.177 oz Body Mass Index (BMI) 29.1 Intake & Output: Intake and Output for Last 24 Hours 08/06/22 08/07/22 08/08/22 23:59 23:59 23:59 Intake Total 2634 / 2634 1170 / 1170 Output Total 1150 / 1150 500 / 500 Balance 1484 / 1484 670 / 670 Lab / Micro Data Result Diagrams: 08/08/22 08:06 08/08/22 08:06 Labs: Laboratory Results - last 24 hr 08/08/22 08:06: WBC 14.1 H, RBC 4.79, Hgb 13.2, Hct 42.1, MCV 87.9, MCH 27.6, MCHC 31.4 L, RDW Std Deviation 43.8, RDW Coeff of Amy 13.6, Plt Count 252, MPV 10.2, Immature Gran % (Auto) 0.400, Neut % (Auto) 80.0 H, Lymph % (Auto) 13.6 L,[place] % (Auto) 5.7, Eos % (Auto) 0.1, Baso % (Auto) 0.2, Absolute Neuts (auto) 11.3 H, Absolute Lymphs (auto) 1.92, Nucleated RBC % 0 08/08/22 08:06: Sodium 141, Potassium 3.9, Chloride 104, Carbon Dioxide 29.0, Anion Gap 8, BUN 10, Creatinine 0.96, Estim Creat Clear Calc 41.74, Est GFR (MDRD) Af Amer 74, Est GFR (MDRD) Non-Af 61, BUN/Creatinine Ratio 10.4, Glucose 148 H, Calcium 9.0 ROS Constitutional Constitutional: Reports systems reviewed and no addt'l complaints, except as documented Cardiovascular Cardiovascular: Reports systems reviewed and no addt'l complaints, except as documented Respiratory/Chest Respiratory/Chest: Reports systems reviewed and no addt'l complaints, except as documented Gastrointestinal Gastrointestinal: Reports systems reviewed and no addt'l complaints, except as documented Physical Exam Const alert, oriented x3 and no apparent distress HEENT Head and Scalp: atraumatic Resp normal respiratory effort GI soft to palpation and non-tender Assessment & Plan (1) Cystocele with third degree uterine prolapse: COMMENT: #3 ring with support estradiol cream. Wants combination case July 2022 Morales Nguyễn/Vicky (2) S/P vaginal hysterectomy: COMMENT: TVHRSOLS combo case with vicky STEIN PLAN: Plan patient is s/p TVHRSOLS POD 1 1. routine ERAS protocol postop care- increase ambulation, encourage oral intakeand oral control of pain. lovenox and scds for dvt prophylaxis, patient stable for discharge to home. 08/08/22 0900 <Electronically signed by Mercedes Nguyễn MD> Cosigner Signature (if applicable): CC: ~ Signed [facility] Work Phone: 1(389) 291-501802-04-[address] Nguyễn [facility] August 08, 2022 8:54am Note Date/Time August 08, 2022 8 :54am [facility] Medical Records Department [address] [place] [address] Instructions for Home/Discharge Instructions 08/08/22 0854 MR#: [id number] Acct: [id number] Name: BERNICE WEST Rep #:[id number] : 1950 71 From: Mercedes reddy MD PCP: [facility] St atus:ADM PJ Discharge Instructions Procedure Hysterectomy, Vaginal Diet Discharge Diet: No restrictions Activity Discharge Activity: Return to Normal Activity, May Not Drive (while taking narcotic pain medications.) and May Shower May resume sexual activity in: 8 weeks Additional Activity Instructions:: No exercising, no strenuous activity, no lifting over 5 pounds, no vacuuming, no tub bathing, no hot tubs Dressing / Incision Call your doctor if your incision/area has: Continuous Slow Oozing, Sudden Increased Bleeding, Increased Pain/ Swelling and Foul Smelling Discharge Call your doctor if you observe: Fever of 101 or Higher, Inability to urinate and Inability to have a bowel movement Follow Up Care Please Follow Up With: Margarette Perry MD Test Results: Test results from this visit will be discussed in further detail at your follow- up appointment, if applicable. Discharge Plan Admission Admit Date/Time: 08/07/22 11:25 Attending Provider: Mercedes Nguyễn Primary Care Provider: [facility] Consulting Providers: Margarette Perry ; Octaviano Vila ; Twila Ribera NP Discharge Orders/Prescriptions Prescriptions: New oxycodone-acetaminophen [Percocet] 5-325 mg tablet 1 tab PO Q8H PRN (Reason: pain) 5 Days Qty: 14 0RF cephalexin [cephalexin] 500 mg capsule 500 mg PO Q12 3 Days Qty: 6 0RF Continued cholecalciferol (vitamin D3) 125 mcg (5,000 unit) tablet 125 mcg PO DAILY oxybutynin chloride 10 mg tablet extended release 24hr 10 mg PO DAILY lisinopril 10 mg tablet 10 mg PO QHS simvastatin 10 mg tablet 20 mg PO QHS pantoprazole [Protonix] 40 mg tablet,delayed release (DR/EC) 40 mg PO DAILY dicyclomine 10 mg capsule 10 mg PO DAILY Referrals / Follow Up: [facility] [Primary Care Provider] - 08/08/22 0854<Electronically signed by Mercedes Nguyễn MD>Mercedes Nguyễn MD CC: MOSAICIST-C Twila Ribera; Dr. Octaviano Vila MD; Dr. Margarette Perry MD; [facility] ~ Signed [facility] Work Phone: 1(336) 842-388302-04-2023 [facility]2023 History and physical note Author Dr. Nguyễn [facility] August 07, 2022 7:26am Note Date/Time August 06, 2022 7 :39pm [facility] Medical Records Department [address] [place] [address] History & Physical Exam 08/06/221938 MR#: [id number] Acct: [id number] Name: BERNICE WEST Rep #:[id number] : 1950 71 From: Mercedes reddy MD [facility]: [facility] St jollyus:[facility] Location: [place] [address] History and Physical Intake Visit Reasons:?vicky olmos TVHBYANE Chief Complaint: pre op ERAS with vicky Congressional Aide Required: No Is patient in pain?: No Allergies celecoxib [From Celebrex] Allergy (Intermediate, Verified 06/03/22 11:07) Rash Medications cholecalciferol (vitamin D3) 125 mcg (5,000 unit) tablet 125 mcg PO DAILY 09/19/19 [History Confirmed 07/27/22] lisinopril 10 mg tablet 10 mg PO QHS 09/19/19 [History Confirmed 07/27/22] oxybutynin chloride 10 mg tablet,extended release 24 hr 10 mg PO DAILY 09/19/19 [History Confirmed 07/27/22] simvastatin 10 mg tablet 20 mg PO QHS 10/22/21 [History Confirmed 07/27/22] dicyclomine 10 mg capsule 10 mg PO BID 01/22/22 [History Confirmed 07/27/22] pantoprazole 40 mg tablet,delayed release (Protonix) 40 mg PO DAILY 01/22/22 [History Confirmed 07/27/22] Is last menstrual period known: No Post menopausal: Yes Patient : No : No PFSH Medical History? Essential hypertension GERD (gastroesophageal reflux disease) Hyperlipidemia Osteoarthritis Vitamin D deficiency Surgical History? History of bladder suspension procedure History of colonoscopy (~05/2020) History of endometrial ablation History of tonsillectomy Family History? Father Heart diseaseSister Cancer ?? ? liverSister Cancer ?? ? ovarianGrandmother Diabetes Social History? household members:? none and other current occupational status:? retired Smoking Status:? Former smoker alcohol intake:? never substance use type:? does not use caffeine:? Yes Type: coffee Number of servings: 5 what type of physical activity do you participate in:? walking frequency:? 1-2 times per week seatbelt use:? always do you feel safe at home:? Yes additional social history:? HPI vicky olmos TVHBSO Details: BERNICE WEST is a 71 year old who presents for preop visit cystocele and uterine prolapse.? Female Reproductive History Menopausal Symptoms: No night sweats History ? ? ? 3 ? Elective abortions ? Hx Para ? ? ? 3 ? Spontaneous abortions ? Hx # Term Pregnancies ? Ectopic pregnancies ? Hx # Pregnancies ? Multiple births ? # of living children ? ? ? 3 Past Pregnancies Del. Date Name GA/Weeks Outcome Route Bth Weight Gen Labor Lgth Anesthesia Del Locatn Provider FOB Unknown Walter ? 1970 ? Unknown Lita ? 1973 ? Unknown Brittany ? 1979 ? ROS Const Constitutional: Reports system reviewed and no additional complaints, except as documented; Denies night sweats Eyes Eyes: Reports system reviewed and no additional complaints, except as documented ENT ENT: Reports system reviewed and no additional complaints, except as documented Cardio Card: Denies chest pain Resp Resp: Denies cough or dyspnea GI GI: Denies abdominal pain or change in bowel habits : Reports as per HPI; Denies nipple discharge Musc Musc: Denies arthralgias, back pain or muscle weakness Skin Skin/Breast: Denies alopecia, change in hair, dry skin, breast mass, breast pain, breast skin changes or nipple discharge Neuro Neuro: Reports system reviewed and no additional complaints, except as documented Psych Psych: Reports system reviewed and no additional complaints, except as documented Endo Endo: Denies cold intolerance, excessive sweating, heat intolerance or polydipsia Zack/Lymph Hematologic/Lymphatic: Denies easy bleeding, Denies easy bruising and Denies lymphadenopathy Exam Const General: cooperative and no acute distress Nutritional Appearance: well nourished Orientation: oriented x3 [facility] Head: normal to inspection and normocephalic Ears: hearing grossly normal bilaterally and external ears normal Nose: external nose normal and nares normal Face and sinus: normal facial exam Neck Neck: normal visual inspection and no lymphadenopathy Thyroid: thyroid normal Chest Chest palpation & inspection: normal inspection of the chest Resp Effort & Inspection: normal respiratory effort Auscultation: clear to auscultation bilaterally Cardio Rate: regular rate Rhythm: regular rhythm Heart Sounds: S1 normal and S2 normal GI Inspection: normal to inspection and non-distended Palpation: soft and no hepatosplenomegaly General: bladder normal to palpation External Female Exam: normal appearance of the urethra and other (atrophic changes) Urethra: normal appearance of the urethra Speculum Exam - Vagina: vagina atrophic (cervix is prolapses just through introitus. States feels dry and irritated) Speculum Exam - Cervix: normal appearance of the cervix Bimanual Exam- Vagina & Uterus: uterine size normal, bladder normal to palpationand non-tender Bimanual Exam- Adnexa, other: normal adnexae, no masses, non-tender, cystocele and vaginal apex descent Pelvic Support: cystocele and vaginal apex descent Musc Other: gross motor intact no deficits, full bilateral strength Skin General: no rashes or lesions noted Neuro General: patient alert, patient awake, moves all extremities and no focal motor deficits Motor: muscle tone normal throughout Extrem General: normal to inspection and no pedal edema Psych Appearance: grossly normal Mental Status: mental status grossly normal Affect: normal affect Speech and Movement: speech and movement normal Coding Level of Care Code No Charge Diagnoses Cystocele with third degree uterine prolapse? N81.3 Family history of ovarian cancer? Z80.41 Atrophic vaginitis? N95.2 Assessment and Plan Assessment and Plan (1) Cystocele with third degree uterine prolapse: ?Status:?Acute ?Comment: #3 ring with support estradiol cream. Wants combination case July 2022 Morales Nguyễn/Vicky (2) Family history of ovarian cancer: ?Status:?Acute ?Comment: empower test negative, pelvic US nl (3) Atrophic vaginitis: ?Status:?Acute ?Comment: estradiol cream Plan After discussing the patient's diagnosis and treatment plan options, patient wishes to proceed with surgical management.? I have discussed with the patient the risks, benefits, and alternatives of the procedure which include but are notlimited to risks of anesthesia, bleeding, infection, possible damage to bowel, bladder, or surrounding vasculature which could lead to additional surgery to evaluate any complications.? Patient agrees to procedure and wishes to proceed.?ACOG/uptodate references given for additional information regarding procedure.? UPDATE- I have seen the patient and performed any clinically relevant updates to the history and physical exam. Mercedes Nguyễn MD 08/07/22 5790 <Electronically signed by Mercedes Nguyễn MD> Cosigner Signature (if applicable): CC: Dr. Mercedes Nguyễn MD; [facility]~ Signed [facility] Work Phone: Chief complaint+Reason for visit Narrative* Chief Complaint SCREENING VSC referral, prolapse, getting worse 1 WK PESSARY CHECK Reason for Visit Atrophic vaginitis Cystocele with third degree uterine prolapse Atrophic vaginitis Cystocele with third degree uterine prolapse Pessary maintenance [facility] Work Phone: Chief complaint+Reason for visit Narrative* Chief Complaint VSC referral, prolap se, getting worse 1 WK PESSARY CHECK pessary check 2 WK FU 5 WK FU Surgery Consultation E-ORDER Reason for Visit Atrophic vaginitis Cystocele with third degree uterine prolapse Atrophic vaginitis Cystocele with third degree uterine prolapse Pessary maintenance UTI (urinary tract infection) Atrophic vaginitis Cystocele with third degree uterine prolapse Pessary maintenance Cystocele with third degree uterine prolapse Pessary maintenance Cystocele with third degree uterine prolapse Pessary maintenance Atrophic vaginitis Cystocele with third degree uterine prolapse [facility] Work Phone: Chief complaint+Reason for visit Narrative* Chief Complaint VSC referral, prolap se, getting worse 1 WK PESSARY CHECK pessary check 2 WK FU 5 WK FU Surgery Consultation E-ORDER CYSTOCELE Reason for Visit Atrophic vaginitis Cystocele with third degree uterine prolapse Atrophic vaginitis Cystocele with third degree uterine prolapse Pessary maintenance UTI (urinary tract infection) Atrophic vaginitis Cystocele with third degree uterine prolapse Pessary maintenance Cystocele with third degree uterine prolapse Pessary maintenance Cystocele with third degree uterine prolapse Pessary maintenance Atrophic vaginitis Cystocele with third degree uterine prolapse [facility] Work Phone: Evaluation note* Diagnosis Onset Date Resolution Status Atrophic vaginitis acute Cystocele with third degree uterine prolapse acute Atrophic vaginitis acute Cystocele with third degree uterine prolapse acute Pessary maintenance acute [facility] Work Phone: Evaluation note* Diagnosis Onset Date Resolution Status Atrophic vaginitis acute Cystocele with third degree uterine prolapse acute Atrophic vaginitis acute Cystocele with third degree uterine prolapse acute Pessary maintenance acute UTI (urinary tract infection) noneactive Atrophic vaginitis acute Cystocele with third degree uterine prolapse acute Pessary maintenance acute Cystocele with third degree uterine prolapse acute Pessary maintenance acute Cystocele with third degree uterine prolapse acute Pessary maintenance acute Atrophic vaginitis acute Cystocele with third degree uterine prolapse acute [facility] Work Phone: Evaluation note* Diagnosis Onset Date Resolution Status Cystocele with third degree uterine prolapse acute Pessary maintenance acute Atrophic vaginitis acute Cystocele with third degree uterine prolapse acute Family history of ovarian cancer acute Cystocele with third degree uterine prolapse acute S/P vaginal hysterectomy acu te [facility] Work Phone: Evaluation noteNo assessment information available [facility] Work Phone: Reason for referral (narrative)No reason for referral information [facility] Work Phone: Family History No Family History Records Found Relationship Condition Age at Onset Recorded Date/T peterson father Cardiac disease Unknown sister Malignant neoplasm Unknown grandmother Diabetes mellitus Unknown Advance Directives No Advanced Directives Records Found Advance Directive Response Recorded Date/ Time Living Will No October 22, 2021 12:25pm Power of Critical Care Nurse Practitioner No October 22 12:25pm Advance Directive Response Recorded Date/ Time Living Will No December 25, 2021 2:11pm Power of Critical Care Nurse Practitioner No December 25 2:11pm Advance Directive Response Recorded Date/ Time Living Will No August 07 3:17pm Power of Critical Care Nurse Practitioner No August 07, 2022 3:17pm Advance Directive Response Recorded Date/ Time Living Will No August 07 4:17pm Power of Critical Care Nurse Practitioner No August 07, 2022 4:17pm Chief Complaint and Reason for Visit Chief Complaint 3 MO FU [email or web address] combo TVHBSO TOTAL VAG HYSTER, BILATERAL SALPINGOOPHORECTOMY TOTAL VAG HYSTER, BILATERAL SALPINGOOPHORECTOMY TOTAL VAG HYSTER, BILATERAL SALPINGOOPHORECTOMY TOTAL VAG HYSTER, BILATERAL SALPINGOOPHORECTOMY Reason for Visit Cystocele with third degree uterine prolapse Pessary maintenance Atrophic vaginitis Cystocele with third degree uterine prolapse Family history of ovarian cancer Cystocele with third degree uterine prolapse S/P vaginal hysterectomy Chief Complaint SCREENING Chief Complaint Admit Date Pain in right knee November 23, 2024 4:04p m Summary Purpose Additional Source Comments Goals (unrecognized section and content) Goals may be documented in a n alternate sectionGoals may be documented in an alternate sectionGoals may be documented in an alternate sectionGoals may be documented in an alternate sectionGoals may be documented in an alternate sectionGoals may be documented in an alternate sectionGoals may be documented in an alternate section Care Teams (unrecognized sec tion and content) Team Status: Active Member Role Status Dates [facility] Primary Care Provider A ctive Team Status: Inactive Member Role Status Dates [facility] Primary Care Provider, Referring Provider Active Flor Huddleston MOSAICIST, MOSAICIST-C Attending Provider Active Team Status: Inactive Member Role Status Dates [facility] Primary Care Provider, Referring Provider Active Dr. Mercedes Nguyễn MD Attending Provider Active Team Status: Active Member Role Status Dates [facility] Primary Care Provider A ctive Dr. Mercedes Nguyễn MD Attending Pr aries, Referring Provider, Other Provider Active Dr. Octaviano Vila MD Other Provider Active Twila Ribera MOSAICIST, MOSAICIST-C Other Provider Active Dr. Margarette Perry MD Other Provider Active Team Status: Active Member Role Status Dates [facility] Primary Care Provider A ctive Dr. Mercedes Nguyễn MD Attending Pr ovider, Referring Provider, Other Provider Active Dr. Octaviano Vila MD Other Provider Active Twila Ribera MOSAICIST, MOSAICIST-C Other Provider Active Dr. Margarette Perry MD Admit Provider, Other Provider Active Team Status: Inactive Member Role Status Dates [facility] Primary Care Provider A ctive Dr. Mercedes Nguyễn MD Attending Provider, Referr ing Provider Active Dr. Octaviano Vila MD Other Provider Active Twila Ribera MOSAICIST, MOSAICIST-C Other Provider Active Dr. Margarette Perry MD Admit Provider, Other Provider Active Team Status: Inactive Member Role Status Dates [facility] Primary C are Provider, Attending Provider, Referring Provider Active Twila Ribera MOSAICIST, MOSAICIST-C Other Provider Active Team Status: Active Member Role Status [facility] Primary Care Provider A ctive Twila Ribera MOSAICIST, MOSAICIST-C Attending Provider, Referrin g Provider Active Team Status: Inactive Member Role Status Dates [facility] Primary Care Provider A ctive Twila Ribera MOSAICIST, MOSAICIST-C Attending Provider, Referrin g Provider Active Team Status: Active Member Role Status Dates Twila Ribera VSC, MOSAICIST-C Primary Care Provider Activ e Team Status: Inactive Member Role Status Dates Twila Ribera VSC, MOSAICIST-C Primary Care Provider Activ e Start: November 22, 2024 End: November 22, 2024 Twila Ribera VSC, MOSAICIST-C Attending Provider Active Start: November 22, 2024 End: November 22, 2024 Team Status: Active Member Role Status Dates Twila Ribera VSC, MOSAICIST-C Primary Care Provider Activ e Start: November 23, 2024 Twila Ribera VSC, MOSAICIST-C Attending Provider Active Start: November 23, 2024 Twila Ribera VSC, MOSAICIST-C Referring Provider Active Start: November 23, 2024 Team Status: Inactive Member Role Status Dates Twila Ribera VSC, MOSAICIST-C Primary Care Provider Activ e Start: November 23, 2024 End: November 23, 2024 Twila Ribera VSC, MOSAICIST-C Attending Provider Active Start: November 23, 2024 End: November 23, 2024 Twila Ribera VSC, MOSAICIST-C Referring Provider Active Start: November 23, 2024 End: November 23, 2024 INFORMATION SOURCE (unrecogn ized section and content) DATE CREATED AUTHOR 05/06/2025 [facility] FOR RECORDS PERTAINING TO PATIENTS WHO ARE OR HAVE BEEN ENROLLED IN A CHEMICAL DEPENDENCY/SUBSTANCEABUSE PROGRAM, SOME INFORMATION MAY BE OMITTED. This clinical summary was aggregated from multiple sources. Caution should be exercised in using it in the provision of clinical care. This summary normalizes information from multiple sources, and as a consequence, information in this document may materially change the coding, format and clinical context of patient data. In addition, data may be omitted in some cases. CLINICAL DECISIONS SHOULD BE BASED ON THE PRIMARY CLINICAL RECORDS. [facility] [employer] [facility]. provides no warranty or guarantee of the accuracy or completeness of information in this document.
== END | disposition home or self-care (01) ==
LOC: OPBI 11:12
PROVIDERS: PCP Nurse Practitioner Family; Referring Provider Nurse Practitioner Family; Visit Provider Nurse Practitioner Family
DX: Z12.31 Encounter for screening mammogram for malignant neoplasm of breast (principal)
CPT/HCPCS: 77067